=== PATIENT | female | born 1950 | race Caucasian/White ===

== ENCOUNTER 2019-05-30 11:19 | Emergency (ER) | payer OTHER, SELFPAY ==
[2019-05-30 11:48] VITALS: BP 133/69; PULSE 82; RESP 16; TEMP 36.8; O2SAT 99
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
== END 2019-05-30 12:44 | disposition home or self-care (01) ==
PROVIDERS: Emergency Provider Nurse Practitioner; PCP Family Medicine
DX: L08.9 Local infection of the skin and subcutaneous tissue, unspecified (principal); S51.801A Unspecified open wound of right forearm, initial encounter; X19.XXXA Contact with other heat and hot substances, initial encounter; E78.00 Pure hypercholesterolemia, unspecified; I10 Essential (primary) hypertension; J45.909 Unspecified asthma, uncomplicated; Z96.653 Presence of artificial knee joint, bilateral; E03.9 Hypothyroidism, unspecified
CPT/HCPCS: 99213; G0463

== ENCOUNTER 2020-09-29 12:15 | Emergency (ER) | payer OTHER, SELFPAY ==
--- NOTE | ~2020-09-29 | XR_ITS ---
EXAMINATION: XR elbow RT min 3V EXAM DATE: 09/29/2020 12:45 INDICATION: Injury one month ago. Still having pain/weakness. TECHNIQUE: Right elbow frontal, lateral with flexion, and oblique projections obtained and reviewed. There is no prior study for comparison. FINDINGS: Right elbow anterior humeral line intact. No periosteal reaction or sclerosis is identifi ed to suggest healing subacute fracture. There are no acute fractures or dislocations identified. Th ere is no subcutaneous gas. The soft tissue is unremarkable. There are no radiopaque foreign barron s. IMPRESSION: 1. Unremarkable right elbow exam. Reviewed, dictated and finalized at location B.
[2020-09-29 12:26] VITALS: BP 108/83; PULSE 85; RESP 16; TEMP 36.8; O2SAT 99
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
== END 2020-09-29 13:07 | disposition home or self-care (01) ==
PROVIDERS: Emergency Provider Nurse Practitioner Family; PCP Nurse Practitioner Family
DX: M25.521 Pain in right elbow (principal); J45.909 Unspecified asthma, uncomplicated; I25.10 Atherosclerotic heart disease of native coronary artery without angina pectoris; Z86.16 Personal history of COVID-19; I10 Essential (primary) hypertension; M79.7 Fibromyalgia; E78.5 Hyperlipidemia, unspecified; E03.9 Hypothyroidism, unspecified; M19.90 Unspecified osteoarthritis, unspecified site; E11.9 Type 2 diabetes mellitus without complications; Z96.659 Presence of unspecified artificial knee joint; Z96.611 Presence of right artificial shoulder joint; Z79.82 Long term (current) use of aspirin; F41.9 Anxiety disorder, unspecified
CPT/HCPCS: 73080; 99213; G0463

== ENCOUNTER 2020-10-24 13:36 | Outpatient (CLI) | payer OTHER, SELFPAY ==
--- NOTE | ~2020-10-24 | MM_ITS ---
EXAMINATION: MM screening jorge BI w christo HISTORY: Screening mammogram TECHNIQUE: Craniocaudal and mediolateral oblique 3-D tomosynthesis images were obtained and synthetic 2-D images were generated. CAD analysis was submitted and interpreted. COMPARISON: No prior mammogram is available for comparison at this institution. BREAST PARENCHYMAL COMPOSITION: The breasts are heterogeneously dense, which may obscure small masses . FINDINGS: RIGHT BREAST: There is focal asymmetry in the middle third of the upper outer quadrant breast. LEFT BREAST: There is no evidence of suspicious mass, calcification, or architectural distortion to s uggest malignancy. IMPRESSION: 1. Right breast focal asymmetry which may represent the patient's baseline however no comparison is c urrently available. 2. Comparison with prior mammograms is necessary. BI-RADS Category 0: Incomplete: Needs comparison with prior mammograms. Reviewed, dictated and finalized at location A. IMPRESSION: 1. Right breast focal asymmetry which may represent the patient's baseline hopkins partha no comparison is currently available. 2. Comparison with prior mammograms is necessary. BI-RADS Category 0: Incomplete: Needs comparison with prior mammograms.
--- NOTE | ~2020-10-24 | DEXA_ITS ---
Bone Density Report Name: Nancy Barbosa Age: 70 Sex: Female Ethnicity: White Date of : 1950 Indication: postmenopausal; height loss; inflammatory bowel disease; prior fracture; asthma or emphysema; hysterectomy; Referring Provider: April Tipton Study: Bone densitometry was performed. Exam Date: October 24, 2020 Accession number: [id number] Bone Density: Region BMD T-score Z-score Classification AP Spine (L1-L4) 0.925 -1.1 1.1 Osteopenia Femoral Neck (Left) 0.808 -0.4 1.5 Normal Total Hip (Left) 0.960 0.1 1.7 Normal Total Hip Bilateral Avg 0.942 -0.1 1.6 Normal Femoral Neck (Right) 0.742 -1.0 0.9 Normal Total Hip (Right) 0.923 -0.2 1.4 Normal World Health Organization criteria for BMD impression classify patients as: Normal (T-score at or above -1.0), Osteopenia (T-score between -1.0 and -2.5), or Osteoporosis (T-score at or below -2.5). 10-year Fracture Risk(1): Major Osteoporotic Fracture 14% Hip Fracture 1.4% Reported Risk Factors: [place] (), Neck BMD=0.742, BMI=32.6, previous fracture (1) FRAX(R) Version 3.08. Fracture probability calculated for an untreated patient. Fracture probability may be lower if the patient has received treatment. Clinical Information Provided by Patient: Has had a low trauma fracture Has the following medical conditions: Asthma or Emphysema, Inflammatory bowel diseases, Hysterectomy Patient maximum height was 66 Menopause Age: 31 No regular weight bearing exercise Drinks caffeinated beverages Onset of menses at age 11 Number of children 2 Impression: The patient has low bone mass, based on the Total Spine T-score. The patient has an estimated ten-year risk of hip fracture of 1.4% and an estimated ten-year risk of major fracture of 14%, based on the WHO FRAX algorithm. The patient has risk factors, including: previous fracture. Discussion: BONE DENSITY IS LOW AT ONE OR MORE SKELETAL SITES. This patient's lowest T-score is low at one or more skeletal sites. It meets the World Health Organization's (WHO) criteria for ?low bone mass? (T-score between -1.0 and -2.5). The patient's 10-year risk of fracture as calculated by FRAX is less than the threshold where pharmacological therapy is recommended by the National Osteoporosis Foundation (NOF). However, all treatment decisions require clinical judgment and consideration of individual patient factors, including patient preferences, comorbidities, previous drug use, risk factors not captured in the FRAX model (e.g., frailty, falls, vitamin D deficiency, increased bone turnover, interval significant decline in bone density) and possible under or overestimation of fracture risk by FRAX. The patient should follow a healthful lifestyle (good nutrition with adequate calcium and vitamin D, and appropriate weight-rancho
== END 2020-10-24 13:37 | disposition home or self-care (01) ==
LOC: ANHIMG 13:39
PROVIDERS: PCP Nurse Practitioner Family; Visit Provider Nurse Practitioner Family
DX: Z12.31 Encounter for screening mammogram for malignant neoplasm of breast (principal); Z78.0 Asymptomatic menopausal state; R92.8 Other abnormal and inconclusive findings on diagnostic imaging of breast; M85.88 Other specified disorders of bone density and structure, other site
CPT/HCPCS: 77063; 77067; 77080

== ENCOUNTER 2021-01-27 23:25 | Emergency (ER) | payer OTHER, SELFPAY ==
--- NOTE | ~2021-01-27 | CT_ITS ---
EXAMINATION: CT BRAIN W/O DATE: 01/28/2021 02:28 INDICATION: Head injury. TECHNIQUE: Computed tomography (CT) of the head was performed without intravenous contrast. The dose- length product was 605.33 mGy-cm. Automated exposure control and iterative reconstruction technique w ere employed. COMPARISON: No prior studies for comparison. FINDINGS: Normal brain parenchymal volume for age. Normal urias-white differentiation. No acute intrac ranial hemorrhage, infarction, mass or mass effect. There are scattered mild periventricular and subc ortical white matter changes, most likely related to small vessel ischemic disease (microangiopathy). No ventriculomegaly or midline shift. Midline sagittal images demonstrate a normal corpus callosum, c raniovertebral junction and sella turcica. Basilar cisterns are patent. Paranasal sinuses and mastoids are pneumatized. No depressed skull fractures. IMPRESSION: 1. No acute intracranial abnormality. Reviewed, dictated and finalized at location A.
[2021-01-27 23:27] VITALS: BP 146/113; PULSE 88; RESP 20; TEMP 36.7; O2SAT 100
[2021-01-28 01:53] VITALS: BP 121/60; PULSE 84; RESP 16; O2SAT 100
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
[2021-01-28 04:53] VITALS: BP 132/68; PULSE 92; RESP 18; O2SAT 95
== END 2021-01-28 05:15 | disposition home or self-care (01) ==
PROVIDERS: Emergency Provider General Practice; PCP Nurse Practitioner Family
DX: S01.112A Laceration without foreign body of left eyelid and periocular area, initial encounter (principal); I25.10 Atherosclerotic heart disease of native coronary artery without angina pectoris; J45.909 Unspecified asthma, uncomplicated; Z86.16 Personal history of COVID-19; I10 Essential (primary) hypertension; E78.5 Hyperlipidemia, unspecified; M79.7 Fibromyalgia; N32.81 Overactive bladder; M19.90 Unspecified osteoarthritis, unspecified site; M85.80 Other specified disorders of bone density and structure, unspecified site; E11.9 Type 2 diabetes mellitus without complications; Z79.82 Long term (current) use of aspirin; Z79.4 Long term (current) use of insulin; Z96.611 Presence of right artificial shoulder joint; Z96.659 Presence of unspecified artificial knee joint; W10.9XXA Fall (on) (from) unspecified stairs and steps, initial encounter
CPT/HCPCS: 12013; 70450; 99284

== ENCOUNTER 2021-11-19 10:37 | Outpatient (CLI) | payer OTHER, SELFPAY ==
[2021-11-19 19:26] LABS: Alanine Aminotransferase 20 U/L (6-35); Albumin Level 4.1 g/dL (3.5-5.1); Alkaline Phosphatase 77 U/L (38-126); Anion Gap 7 mmol/L (8-16); Aspartate Amino Transferase 39 U/L (14-36); Bilirubin,Total 0.6 mg/dL (0.2-1.3); Blood Urea Nitrogen 14 mg/dL (7-17); Calcium 9.1 mg/dL (8.4-10.2); Carbon Dioxide 32 mmol/L (22-30); Chloride 98 mmol/L (98-107); Cholesterol 133 mg/dL (0-200); Estimated Glomerular Filt Rate > 60; Glucose 180 mg/dL (65-110); HDL Direct 38 mg/dL; Potassium 4.8 mmol/L (3.4-5.0); Sodium 137 mmol/L (137-145); Triglycerides 87 mg/dL (<150)
[2021-11-19 19:37] LABS: LDL Cholesterol Direct 60 mg/dL
[2021-11-19 19:40] LABS: Iron 87 ug/dL (37-170)
[2021-11-19 19:55] LABS: Percent Iron Saturation 23 % (20-50)
[2021-11-19 19:56] LABS: Microalbumin Urine Random 9.5 mg/L (0-16.7)
[2021-11-19 19:59] LABS: Creatinine Urine 105.9 mg/dL
[2021-11-19 20:00] LABS: Hemoglobin A1C 7.9 % (<5.7)
[2021-11-19 20:26] LABS: Hematocrit 37.9 % (37.0-47.0); Mean Corpuscular HGB Conc 31.7 g/dl (32-36); Mean Corpuscular Hemoglobin 28.7 pg (26-34); Mean Corpuscular Volume 90.7 fl (80-100); Platelet Count Result 244 k/mm3 (150-375); Red Blood Count 4.18 M/mm3 (4.2-5.4); Red Cell Distribution Width 13.5 % (11.5-14.5); White Blood Count 6.8 K/mm3 (4.5-10.0)
== END 2021-11-19 10:38 | disposition home or self-care (01) ==
PROVIDERS: PCP Family Medicine; Visit Provider Nurse Practitioner Family
DX: E03.9 Hypothyroidism, unspecified (principal); I10 Essential (primary) hypertension; E11.9 Type 2 diabetes mellitus without complications; E78.5 Hyperlipidemia, unspecified; D64.9 Anemia, unspecified
CPT/HCPCS: 36415; 80053; 80061; 82043; 82728; 83036; 83540; 83550; 84443; 85027

== ENCOUNTER 2022-01-30 15:20 | Outpatient (CLI) | payer OTHER, SELFPAY ==
--- NOTE | ~2022-01-30 | MM_ITS ---
EXAMINATION: MM screening jorge BI w christo HISTORY: Screening TECHNIQUE: Craniocaudal and mediolateral oblique 3-D tomosynthesis images were obtained and synthetic 2-D images were generated. CAD analysis was submitted and interpreted. COMPARISON: Comparison to multiple prior studies sequentially, with oldest reviewed study dated 08/02. BREAST PARENCHYMAL COMPOSITION: Breast composed of scattered areas of fibroglandular density FINDINGS: There is no evidence of suspicious mass, calcification, or architectural distortion to sugg est malignancy in either breast. There has been no suspicious interval change. IMPRESSION: 1. No mammographic evidence of malignancy. 2. Recommend routine screening mammography in one year. BI-RADS Category 1: Negative Reviewed, dictated and finalized at location A.
== END 2022-01-30 15:21 | disposition home or self-care (01) ==
PROVIDERS: PCP Family Medicine; Visit Provider Nurse Practitioner Family
DX: Z12.31 Encounter for screening mammogram for malignant neoplasm of breast (principal)
CPT/HCPCS: 77063; 77067

== ENCOUNTER 2022-06-20 10:11 | Outpatient (CLI) | payer OTHER, SELFPAY ==
[2022-06-20 20:10] LABS: Vitamin D 25 Hydroxy 55.9 ng/mL
[2022-06-20 20:23] LABS: Basophils Absolute Auto 0.1 K/mm3 (0.0-0.1); Basophils Percent Auto 0.7 % (0.2-1.2); Eosinophils Absolute Auto 0.2 K/mm3 (0-0.3); Eosinophils Percent Auto 2.9 % (0-4.4); Hematocrit 38.3 % (37.0-47.0); Hemoglobin 11.8 g/dL (12.0-15.0); Immature Granulocyte Absolute 0.03 K/mm3 (0.00-0.031); Immature Granulocyte Percent A 0.4 % (0-0.5); Lymphocytes Absolute Auto 2.03 K/mm3 (0.9-3.2); Lymphocytes Percent Auto 29.2 % (18.3-44.2); Mean Corpuscular HGB Conc 30.8 g/dl (32-36); Mean Corpuscular Hemoglobin 27.8 pg (26-34); Mean Corpuscular Volume 90.3 fl (80-100); Mean Platelet Volume 11.7 fl (7.4-10.4); Monocytes Absolute Auto 1.2 K/mm3 (0.1-0.6); Monocytes Percent Auto 17.1 % (2.6-8.5); Neutrophils Absolute Auto 3.5 K/mm3 (1.3-6.7); Neutrophils Percent Auto 49.7 % (45.5-73.1); Platelet Count Result 239 k/mm3 (150-375); Red Blood Count 4.24 M/mm3 (4.2-5.4); Red Cell Distribution Width 13.2 % (11.5-14.5)
[2022-06-20 20:34] LABS: Alanine Aminotransferase 21 U/L (6-35); Alkaline Phosphatase 87 U/L (38-126); Anion Gap 5 mmol/L (8-16); Aspartate Amino Transferase 41 U/L (14-36); Bilirubin,Total 0.5 mg/dL (0.2-1.3); Blood Urea Nitrogen 20 mg/dL (7-17); Calcium 9.3 mg/dL (8.4-10.2); Carbon Dioxide 31 mmol/L (22-30); Chloride 103 mmol/L (98-107); Cholesterol 131 mg/dL (0-200); Estimated Glomerular Filt Rate > 60; Glucose 159 mg/dL (65-110); HDL Direct 38 mg/dL; Potassium 4.9 mmol/L (3.4-5.0); Sodium 139 mmol/L (137-145); Triglycerides 95 mg/dL (<150)
[2022-06-20 20:46] LABS: LDL Cholesterol Direct 67 mg/dL
[2022-06-21 10:47] LABS: Hemoglobin A1C 8.4 % (<5.7)
== END 2022-06-20 10:12 | disposition home or self-care (01) ==
LOC: ANHGOSHLAB 10:13
PROVIDERS: PCP Family Medicine; Visit Provider Nurse Practitioner Family
DX: E11.9 Type 2 diabetes mellitus without complications (principal); I10 Essential (primary) hypertension; E78.5 Hyperlipidemia, unspecified; E03.9 Hypothyroidism, unspecified; E55.9 Vitamin D deficiency, unspecified
CPT/HCPCS: 36415; 80053; 80061; 82306; 83036; 84443; 85025

== ENCOUNTER → 2022-06-28 14:34 | Outpatient (CLI) | payer OTHER, SELFPAY ==
--- NOTE | ~2022-06-28 | XR_ITS ---
XR lumbar spine 2-3V 06/28/2022 14:54 Indication: Low back pain. Hip pain. Procedure: 3 views lumbar spine Comparison: No prior studies for comparison. Findings: Vertebral body heights are maintained. There is lower lumbar facet hypertrophy at L5-S1. No acute fracture, subluxation or dislocation. Pedicles intact. Sacral foramen are symmetric. There is disc narrowing at L5-S1. There is mild atherosclerosis. Impression: 1: Mild lumbar spondylosis. Reviewed, dictated and finalized at location A. Impression: 1: Mild lumbar spondylosis.
== END ==
PROVIDERS: PCP Family Medicine; Visit Provider Family Medicine
DX: M47.896 Other spondylosis, lumbar region (principal)
CPT/HCPCS: 72100

== ENCOUNTER 2023-02-10 11:12 | Outpatient (CLI) | payer OTHER, SELFPAY ==
[2023-02-10 13:09] LABS: Basophils Percent Auto 0.4 % (0.2-1.2); Eosinophils Absolute Auto 0.3 K/mm3 (0-0.3); Eosinophils Percent Auto 2.4 % (0-4.4); Hematocrit 41.8 % (37.0-47.0); Hemoglobin 12.9 g/dL (12.0-15.0); Immature Granulocyte Absolute 0.05 K/mm3 (0.00-0.031); Immature Granulocyte Percent A 0.5 % (0-0.5); Lymphocytes Absolute Auto 2.12 K/mm3 (0.9-3.2); Lymphocytes Percent Auto 19.7 % (18.3-44.2); Mean Corpuscular HGB Conc 30.9 g/dl (32-36); Mean Corpuscular Hemoglobin 28.4 pg (26-34); Mean Corpuscular Volume 91.9 fl (80-100); Mean Platelet Volume 11.6 fl (7.4-10.4); Monocytes Absolute Auto 1.1 K/mm3 (0.1-0.6); Monocytes Percent Auto 9.9 % (2.6-8.5); Neutrophils Absolute Auto 7.2 K/mm3 (1.3-6.7); Neutrophils Percent Auto 67.1 % (45.5-73.1); Platelet Count Result 235 k/mm3 (150-375); Red Blood Count 4.55 M/mm3 (4.2-5.4); Red Cell Distribution Width 13.4 % (11.5-14.5); White Blood Count 10.8 K/mm3 (4.5-10.0)
[2023-02-10 13:16] LABS: Alanine Aminotransferase 20 U/L (6-35); Albumin Level 4.1 g/dL (3.5-5.1); Alkaline Phosphatase 83 U/L (38-126); Anion Gap 7 mmol/L (8-16); Aspartate Amino Transferase 45 U/L (14-36); Bilirubin,Total 0.7 mg/dL (0.2-1.3); Blood Urea Nitrogen 15 mg/dL (7-17); Calcium 9.7 mg/dL (8.4-10.2); Carbon Dioxide 29 mmol/L (22-30); Chloride 98 mmol/L (98-107); Cholesterol 135 mg/dL (0-200); Estimated Glomerular Filt Rate > 60; Glucose 176 mg/dL (65-110); HDL Direct 41 mg/dL; Potassium 3.9 mmol/L (3.4-5.0); Sodium 134 mmol/L (137-145); Triglycerides 103 mg/dL (<150)
[2023-02-10 13:27] LABS: LDL Cholesterol Direct 60 mg/dL
[2023-02-10 13:33] LABS: Hemoglobin A1C 7.7 % (<5.7)
[2023-02-10 14:27] LABS: Microalbumin Urine Random 82.8 mg/L (0-16.7)
[2023-02-10 15:27] LABS: Creatinine Urine 673.2 mg/dL; MALB Creatinine Ratio 12.3 mg/g (0-30)
[2023-02-13 11:55] LABS: Vitamin D 1,25 (OH)2 Total 27 pg/mL (18-72); Vitamin D2 1,25 (OH)2 <8 pg/mL; Vitamin D3 1,25 (OH)2 27 pg/mL
== END 2023-02-10 11:13 | disposition home or self-care (01) ==
LOC: ANHGOSHLAB 11:13
PROVIDERS: PCP Family Medicine; Visit Provider Nurse Practitioner Family
DX: E55.9 Vitamin D deficiency, unspecified (principal); I10 Essential (primary) hypertension; E11.9 Type 2 diabetes mellitus without complications; E03.9 Hypothyroidism, unspecified
CPT/HCPCS: 36415; 80053; 80061; 82043; 82652; 83036; 84443; 85025

== ENCOUNTER 2023-11-12 12:42 | Outpatient (CLI) | payer OTHER, SELFPAY ==
[2023-11-12 19:58] LABS: Hematocrit 40.5 % (37.0-47.0); Hemoglobin 13.4 g/dL (12.0-15.0); Mean Corpuscular HGB Conc 33.1 g/dl (32-36); Mean Corpuscular Hemoglobin 29.3 pg (26-34); Mean Corpuscular Volume 88.6 fl (80-100); Platelet Count Result 235 k/mm3 (150-375); Red Blood Count 4.57 M/mm3 (4.2-5.4); Red Cell Distribution Width 13.8 % (11.5-14.5)
[2023-11-12 21:13] LABS: Free T4 Free Thyroxine 1.87 ng/mL (0.78-2.19); Vitamin D 25 Hydroxy 51.5 ng/mL
[2023-11-12 21:23] LABS: Alanine Aminotransferase 17 U/L (6-35); Albumin Level 4.5 g/dL (3.5-5.1); Alkaline Phosphatase 88 U/L (38-126); Anion Gap 13 mmol/L (4-12); Aspartate Amino Transferase 32 U/L (14-36); Bilirubin,Total 1.1 mg/dL (0.2-1.3); Blood Urea Nitrogen 20 mg/dL (7-17); Calcium 9.7 mg/dL (8.4-10.2); Carbon Dioxide 26 mmol/L (22-30); Chloride 95 mmol/L (98-107); Cholesterol 144 mg/dL (0-200); Estimated Glomerular Filt Rate > 60; Glucose 206 mg/dL (65-110); HDL Direct 42 mg/dL; Potassium 4.7 mmol/L (3.4-5.0); Sodium 134 mmol/L (137-145); Triglycerides 97 mg/dL (<150)
[2023-11-12 21:32] LABS: Hemoglobin A1C 7.9 % (<5.7)
[2023-11-12 21:33] LABS: LDL Cholesterol Direct 72 mg/dL; Thyroid Stimulating Hormone 0.811 uIU/mL (0.465-4.680)
== END 2023-11-12 12:43 | disposition home or self-care (01) ==
LOC: ANHGOSHLAB 12:44
PROVIDERS: PCP Family Medicine; Visit Provider Nurse Practitioner
DX: Z00.00 Encounter for general adult medical examination without abnormal findings (principal); E11.9 Type 2 diabetes mellitus without complications; E03.9 Hypothyroidism, unspecified; E55.9 Vitamin D deficiency, unspecified
CPT/HCPCS: 36415; 80053; 80061; 82306; 83036; 84439; 84443; 85027

== ENCOUNTER 2023-12-12 13:44 | Outpatient (CLI) | payer OTHER, SELFPAY ==
--- NOTE | ~2023-12-12 | DEXA_ITS ---
Bone Density Report Name: YUNG MAE Age: 73 Sex: Female Ethnicity: White Date of : 1950 Indication: hyperparathyroidism; height loss; inflammatory bowel disease; asthma or emphysema; hysterectomy; Referring Provider: Moni Renner Study: Bone densitometry was performed. Exam Date: December 12, 2023 Accession number: [id number] Bone Density: Region BMD T-score Z-score Classification AP Spine(L1-L4) 0.941 -1.0 1.4 Normal Femoral Neck (Left) 0.785 -0.6 1.5 Normal Total Hip (Left) 0.948 0.0 1.8 Normal Femoral Neck (Right) 0.725 -1.1 0.9 Osteopenia Total Hip (Right) 0.878 -0.5 1.2 Normal Femoral Neck Mean 0.755 -0.8 1.2 Normal Total Hip Mean 0.913 -0.2 1.5 Normal World Health Organization criteria for BMD impression classify patients as: Normal (T-score at or above -1.0), Osteopenia (T-score between -1.0 and -2.5), or Osteoporosis (T-score at or below -2.5). 10-year Fracture Risk(1): Major Osteoporotic Fracture 9.7% Hip Fracture 1.5% Reported Risk Factors: [place] (), Neck BMD=0.725, BMI=28.7 (1) FRAX(R) Version 3.08. Fracture probability calculated for an untreated patient. Fracture probability may be lower if the patient has received treatment. Clinical Information Provided by Patient: Has used the following medications: Vitamin D, Calcium Has the following medical conditions: Asthma or Emphysema, Inflammatory bowel diseases, Hyperparathyroidism, Hysterectomy Patient maximum height was 66.5 Menopause Age: 31 No regular weight bearing exercise Does not regularly consume dairy products Drinks caffeinated beverages Onset of menses at age 12 Number of children 2 Impression: The patient has low bone mass, based on the Right Femoral Neck T-score. Discussion: BONE DENSITY IS LOW AT ONE OR MORE SKELETAL SITES. This patient's lowest T-score is low at one or more skeletal sites. It meets the World Health Organization's (WHO) criteria for ?low bone mass? (T-score between -1.0 and -2.5). The patient's 10-year risk of fracture as calculated by FRAX is less than the threshold where pharmacological therapy is recommended by the National Osteoporosis Foundation (NOF). However, all treatment decisions require clinical judgment and consideration of individual patient factors, including patient preferences, comorbidities, previous drug use, risk factors not captured in the FRAX model (e.g., frailty, falls, vitamin D deficiency, increased bone turnover, interval significant decline in bone density) and possible under or overestimation of fracture risk by FRAX. The patient should follow a healthful lifestyle (good nutrition with adequate calcium and vitamin D, and appropriate weight-bearing exercise). Follow-Up: Consider repeating this study in 2 to 3 y
--- NOTE | ~2023-12-12 | MM_ITS ---
EXAMINATION: MM screening jorge BI w christo HISTORY: Screening TECHNIQUE: Craniocaudal and mediolateral oblique 3-D tomosynthesis images were obtained and synthetic 2-D images were generated. CAD analysis was submitted and interpreted. COMPARISON: Comparison to multiple prior studies sequentially, with oldest reviewed study dated Remberto rison to multiple prior studies sequentially, with oldest reviewed study dated 08/03/2015. . BREAST PARENCHYMAL COMPOSITION: Dense: The breasts are heterogeneously dense, which may obscure small masses FINDINGS: There is no evidence of suspicious mass, calcification, or architectural distortion to sugg est malignancy in either breast. There has been no suspicious interval change. IMPRESSION: 1. No mammographic evidence of malignancy. 2. Recommend routine screening mammography in one year. BI-RADS Category 1: Negative Reviewed, dictated and finalized at location B.
== END 2023-12-12 13:45 | disposition home or self-care (01) ==
LOC: CHSIMG 13:52
PROVIDERS: Visit Provider Nurse Practitioner
DX: Z12.31 Encounter for screening mammogram for malignant neoplasm of breast (principal); Z78.0 Asymptomatic menopausal state; M85.88 Other specified disorders of bone density and structure, other site
CPT/HCPCS: 77063; 77067; 77080

== ENCOUNTER 2024-12-24 10:48 | Outpatient (CLI) | payer OTHER, SELFPAY ==
--- OUTSIDE RECORDS SUMMARY | 2024-12-24 11:35 | XMS_ITS | Encounter Summary ---
Author Organization [facility] Healthcare Address [address] [place] [id number] Care Team Providers Care Sorting And Folding Supervisor Name Role Phone Jessica Hanna MD Unavailable Connor Gayle MD Unavailable Rosanne Olson MD Primary Care Provider Encounter Details Date Type Department Care Team (Late st Contact Info) Description 12/22/[address] [facility] Diabetes and Endocrinology [address] [place] [id number] Provider, MD Alexia [address] [place], [place] [id number] Social History Tobacco Use Types Packs/Day Years Used Date Smoking Tobacco: Never Smokeless Tobacco: Never Alcohol Use Standard Drinks/Week Comments No 0 (1 standard drink = 0.6 oz pur e alcohol) PHQ-2 Answer Date Recorded PHQ-2 Total Score (If total score is 3 or more points, staff should administer the PHQ-9) 0 12/25/2021 Personal Safety Answer Date Recorded Have you ever been in or are you currently in a harmful physical or emotional relationship or is someone making you feel afraid or unsafe? Denies 12/31/2023 Comments No Sex and Gender Information Value Date Recorded Sex Assigned at Not on file Legal Sex Female 3:35 AM PROCEDURES RN Gender Identity Not on file Sexual Orientation Not on file documented as of this encounter Plan of Treatment Not on file documented as of this encounter Procedures Procedure Name Priority Date/Time Associated Diagnosis Comments DIABETES EYE EXAM Routine 09/09/2024 8:09 AM CDT documented in this encounter Results * DIABETES EYE EXAM (09/09/2024 8:09 AM CDT) us Historical Provider HEALTH MAINTENANCE Final Result documented in this encounter Visit Diagnoses Not on filedocumented in this encounter Care Teams Sorting And Folding Supervisor Relationship Specialty [place] [id number] [place] [address] PCP - General Family Practice 10/10/22 [place] [address] [address] [place] [address] Consulting Physician Endocrinology Diabetes & Metabolism 05/12/18 [place] [id number] [address] [facility] [address] [place] [address] Consulting Physician Cardiology 11/30/19 documented as of this encounter
--- OUTSIDE RECORDS SUMMARY | 2024-12-24 11:35 | XMS_ITS | Clinical Summary ---
Author Organization [facility] Address [address] [place] [address] Care Team Providers Care Proctologist Name Role Phone Jessica Hanna MD Unavailable Connor Gayle MD Unavailable Rosanne Olson MD Primary Care Provider Allergies Active Allergy Reactions Criticality Noted Date Comments Adhesive Unknown Adhesive Tape-Silicones Other (See comments) Reaction: UNKNOWN, Clarithromycin Nausea only Reaction: Nausea, Latex Medications carvedilol (COREG) 6.25 mg tablet take 1 tablet by oral route every day with food 0 0 017 Active Additional Information Patient taking differently:6.25 mg2 times daily with meals (bkfst, dinner), Reported on 12/09/2024 sennosides (SENNA) 8.6 mg capsule take 1 capsule by oral route 2 times every day PRN 0 0 017 Active furosemide (LASIX) 20 mg tablet take 1 tablet by oral route every day 0 0 017 Active Additional Information Patient taking differently:20 mgoral Daily, Reported on 12/09/2024 atorvastatin (LIPITOR) 40 mg tablet Take 1 tablet (40 mg total) by mouth daily 3 017 Active aspirin 81 mg tablet Take 2 tablets (162 mg total) by mouth daily Active cholecalciferol (VITAMIN D-3) 5,000 unit capsule Take 1 capsule (5,000 Units total) by mouth daily Active buPROPion (WELLBUTRIN) 75 mg tablet Take 1 tablet (75 mg total) by mouth 2 (two) times a day 60 tablet [address] (CYMBALTA) 30 mg capsule Take by mouth daily Active nystatin-triamcin olone cream Apply topically 2 (two) times a day Active oxybutynin XL (DITROPAN-XL) 10 mg 24 hr tablet Take 1 tablet (10 mg total) by mouth daily Active Senna Laxative 8.6 mg tablet TAKE 1 TABLET BY MOUTH TWICE A DAY NEEDED FOR CONSTIPATION Active celecoxib (CeleBREX) 200 mg capsule Take by mouth daily Active cyclobenzaprine (FLEXERIL) 10 mg tablet TAKE 0.5-1 ORAL TABLET 2 TIMES A DAY Active ibuprofen (ADVIL,MOTRIN) 800 mg tablet TAKE 1 TABLET BY MOUTH EVERY 6 TO 8 HOURS NEEDED Active ROPivacaine (NAROPIN) 5 mg/mL (0.5 %) injection Take 40 mg by injection route. Active traZODone (DESYREL) 50 mg tablet Take 1 tablet (50 mg total) by mouth daily as needed Active triamcinolone (Kenalog) 10 mg/mL injection Take 40 mg by injection route. Active FreeStyle Suzette 3 Seltzer miscIndications:T ype 2 diabetes mellitus with hyperglycemia, with long-term current use of insulin ([facility]) Continuous glucose monitor 1 each Active TiZANidine (ZANAFLEX) 2 mg capsuleIndication s:Other closed displaced fracture of proximal end of left humerus, sequela TAKE 1 CAPSULE BY MOUTH 3 TIMES A DAY NEEDED FOR MUSCLE SPASMS. 30 capsule Active levothyroxine (SYNTHROID) 100 mcg tabletIndications :Acquired hypothyroidism TAKE 1 TABLET BY MOUTH EVERY DAY 30 tablet 11 Active Additional Information Patient taking differently:100 mcg oral Daily,Every day except Friday, Reported on 12/09/2024 HumaLOG 100 unit/mL pen for injectionIndicati ons:type 2 diabetes mellitus Inject 4-12 Units under the skin 3 (three) times a day before meals 30 mL 3 024 2024 Active Xeljanz XR 11 mg 025 Active semaglutide (OZEMPIC) 2 mg/dose (8 mg/3 mL) pen injector injectionIndicati ons:type 2 diabetes mellitus Inject 2 mg under the skin once a week 9 mL 3 025 2025 Active insulin glargine 100 unit/mL (3 mL) pen for injection INJECT 16 UNITS UNDER THE SKIN TWICE DAILY Active blood-glucose sensor (FreeStyle Suzette 3 Plus Sensor) deviceIndications :Type 2 diabetes mellitus with hyperglycemia, with long-term current use of insulin ([facility]) Change sensor every 15 days. 6 each 3 Active pen needle, diabetic (Pen Needle) 31 gauge x 5/16 needleIndications :Type 2 diabetes mellitus with hyperglycemia, with long-term current use of insulin ([facility]) Use to inject insulin 4 times daily 400 each 3 Active pen needle, diabetic 31 gauge x 3/16 needleIndications :Type 2 diabetes mellitus with hyperglycemia, with long-term current use of insulin ([facility]) Inject insulin four times daily 400 each 3 024 2024 Discontinued blood-glucose sensor (FreeStyle Suzette 3 Sensor) deviceIndications :Type 2 diabetes mellitus with hyperglycemia, with long-term current use of insulin ([facility]) Continuous glucose monitor. Please change every 14 days. 6 each 3 025 2024 Discontinued insulin glargine (LANTUS) 100 unit/mL (3 mL) pen for injection Inject 16 Units under the skin 2 (two) times a day 30 mL 3 025 2024 Discontinued(A lternate therapy) Active Problems Problem Noted Date Diagnosed Date Foul smelling urine 08/04/2024 Assessment & Plan (08/04/2024 2:05 PM CDT): New problem. Poor water intake. Stressed need to cut back on soda & increase water intake (minimum 60oz/day). Will check UA/cx. Does not mychart. Verified phone #/address to contact re: results. Class 2 severe obesity due t o excess calories with serious comorbidity and body mass index (BMI) of 36.0 to 36.9 in adult 07/04/2022 Assessment & Plan (07/04/2022 4:11 PM CDT): Discussed healthy diet and importance of regular physical activity (20- 30min/day, 150min/wk). Limited d/t chronic pain Acquired hypothyroidism 12/25/2021 Overview (12/25/2021): Recheck TFT's Adjust dose of LT4 as indicated Assessment & Plan (12/09/2024 1:51 PM CDT): Chronic problem, clinically & biochemically euthyroid on current Levothyroxine 100 mcg 6 days/wk. Aware to take 1st thing in morning, 30-60 minutes before food/drink/other medications. TFTs in range 04/21/24 Assessment & Plan (08/04/2024 1:19 PM CDT): Chronic problem, currently taking Levothyroxine 100 mcg 6 days/wk. Aware to take 1st thing in morning, 30-60 minutes before food/drink/other medications. Assessment & Plan (04/21/2024 1:10 PM CEMENT PAVER): Chronic problem, currently taking Levothyroxine 100 mcg 6 days/wk. Aware to take 1st thing in morning, 30-60 minutes before food/drink/other medications. Will update labs today. Does not mychart. Verified phone #/address to contact re: results. Assessment & Plan (12/25/2023 1:34 PM CDT): Chronic problem, currently taking Levothyroxine 100 mcg 6 days/wk after 08/14/23 lab results. Will update labs today. Does not mychart. Verified phone #/address to contact re: results. Aware to take 1st thing in morning, 30-60 minutes before food/drink/other medications. Assessment & Plan (08/14/2023 2:40 PM CDT): Chronic problem, currently taking Levothyroxine 100mcg daily. Will repeat TFTs today. Will update labs today. Does not mychart. Verified phone #/address to contact re: results. Aware to take 1st thing in morning, 30-60 minutes before food/drink/other medications. Assessment & Plan (05/07/2023 3:57 PM CEMENT PAVER): Chronic problem, currently taking Levothyroxine 100mcg Friday through Friday; none on Friday. Will repeat TFTs today. Will update labs today. Does not mychart. Verified phone #/address to contact re: results. Aware to take 1st thing in morning, 30-60 minutes before food/drink/other medications. Assessment & Plan (10/10/2022 2:48 PM CDT): Chronic problem, currently taking Levothyroxine 100mcg. Had labs drawn at PCP 06/20/22: TSH=1.620 No changes at this time. Assessment & Plan (07/04/2022 4:12 PM CDT): Chronic problem, currently taking Levothyroxine 100mcg. Had labs drawn at PCP 06/20/22: TSH=1.620 No changes at this time. Hyperlipidemia associated with type 2 diabetes dada clifton 08/05/2017 Assessment & Plan (12/09/2024 1:51 PM CDT): Chronic problem, controlled on current Atorvastatin 40mg. Last lipid panel: 08/04/24 LDL=68, TG=78. Assessment & Plan (08/04/2024 1:19 PM CDT): Chronic problem, controlled on current Atorvastatin 40mg. Last lipid panel: 11/12/23 LDL=72, TG=97. Assessment & Plan (04/21/2024 1:10 PM CEMENT PAVER): Chronic problem, controlled on current Atorvastatin 40mg. Last lipid panel: 11/12/23 LDL=72, TG=97. Assessment & Plan (12/25/2023 1:32 PM CDT): Chronic problem, controlled on current Atorvastatin 40mg. Last lipid panel: 08/14/23 LDL=60, AH=883. Assessment & Plan (08/14/2023 2:00 PM CDT): Chronic problem, controlled on current Atorvastatin 40mg. Last lipid panel: 06/20/22 LDL=67, TG=95. Will update labs today. Does not mychart. Verified phone #/address to contact re: results. Assessment & Plan (05/07/2023 4:00 PM CEMENT PAVER): Chronic problem, controlled on current Atorvastatin 40mg. Last lipid panel: 06/20/22 LDL=67, TG=95. No changes at this time. Assessment & Plan (10/10/2022 2:48 PM CDT): Chronic problem, controlled on current Atorvastatin 40mg. Last lipid panel: 06/20/22 LDL=67, TG=95. No changes at this time. Assessment & Plan (07/04/2022 4:18 PM CDT): Chronic problem, controlled on current Atorvastatin 40mg. Last lipid panel: 08/14/21 LDL=82, TG=81. No changes at this time. Assessment & Plan (08/14/2021 4:20 PM CDT): Chronic, well controlled Low fat Low cholesterol diet Exercise Continue statin therapy Check lipid profile Assessment & Plan (08/31/2020 2:57 PM CDT): Goal of treatment , LDL cholesterol less than 100 ( less than 70 in patients with history of heart attacks and / or strokes ) NonHDL cholesterol ( total cholesterol minus HDL cholesterol ) goal less than 130 ( less than 100 in patients with history of heart attacks and / or strokes ) Low cholesterol, low fat diet was discussed and advised. Daily exercise On statin therapy with atorvastatin Assessment & Plan (03/28/2020 3:04 PM CEMENT PAVER): Goal of treatment , LDL cholesterol less than 100 ( less than 70 in patients with history of heart attacks and / or strokes ) NonHDL cholesterol ( total cholesterol minus HDL cholesterol ) goal less than 130 ( less than 100 in patients with history of heart attacks and / or strokes ) Low cholesterol, low fat diet was discussed and advised. Daily exercise On statin therapy Lipitor Assessment & Plan (11/30/2019 2:14 PM CDT): Goal of treatment , LDL cholesterol less than 100 ( less than 70 in patients with history of heart attacks and / or strokes ) NonHDL cholesterol ( total cholesterol minus HDL cholesterol ) goal less than 130 ( less than 100 in patients with history of heart attacks and / or strokes ) Low cholesterol, low fat diet was discussed and advised. Daily exercise On statin therapy with Lipitor Assessment & Plan (08/26/2019 1:52 PM CDT): At goal on current medications. Continue statin therapy. Assessment & Plan (05/21/2019 10:07 AM CEMENT PAVER): At goal on current medications. Continue statin therapy. Assessment & Plan (02/04/2019 2:45 PM CDT): At goal on current medications. Continue statin therapy. Assessment & Plan (11/10/2018 1:57 PM CDT): Goal of treatment , LDL cholesterol less than 100 ( less than 70 in patients with history of heart attacks and / or strokes ) NonHDL cholesterol ( total cholesterol minus HDL cholesterol ) goal less than 130 ( less than 100 in patients with history of heart attacks and / or strokes ) Low cholesterol, low fat diet was discussed and advised. Daily exercise On statin therapy Check lipid profile Assessment & Plan (05/14/2018 2:01 PM CEMENT PAVER): Goal of treatment , LDL cholesterol less than 100 ( less than 70 in patients with history of heart attacks and / or strokes ) NonHDL cholesterol ( total cholesterol minus HDL cholesterol ) goal less than 130 ( less than 100 in patients with history of heart attacks and / or strokes ) Low cholesterol, low fat diet was discussed and advised. Daily exercise On statin therapy Assessment & Plan (12/23/2017 12:23 PM CDT): Goal of treatment , LDL cholesterol less than 100 ( less than 70 in patients with history of heart attacks and / or strokes ) NonHDL cholesterol ( total cholesterol minus HDL cholesterol ) goal less than 130 ( less than 100 in patients with history of heart attacks and / or strokes ) Low cholesterol, low fat diet was discussed and advised. Daily exercise On statin therapy Assessment & Plan (08/05/2017 3:21 PM CDT): Goal of treatment , LDL cholesterol less than 100 ( less than 70 in patients with history of heart attacks and / or strokes ) NonHDL cholesterol ( total cholesterol minus HDL cholesterol ) goal less than 130 ( less than 100 in patients with history of heart attacks and / or strokes ) Low cholesterol, low fat diet was discussed and advised. Daily exercise On statin therapy Type 2 diabetes mellitus wit h hyperglycemia, with long-term current use of insulin 12/10/2016 Assessment & Plan (12/09/2024 2:15 PM CDT): Chronic problem. A1c at goal and improved from 6.9% 08/04/24 to now 6.7%. Current medications: Ozempic 2 mg weekly. Insulin Glargine 16 units in morning, 16 units at bedtime Humalog twice daily before breakfast & dinner (with any meal). For blood sugar less than 80: 0 For blood sugar 81-150: 4 units For blood sugar 151-200: 6 units For blood sugar 201-250: 8 units For blood sugar 251-300: 10 units For blood sugar Over 300: 12 units *for lunch: take 2 units less on above scale UTD on labs. UTD on DM eye exam (11/2022 no DMR). Had appt summer; letter sent to get copy or report. Discussed with Nancy Mae: Strive for regular exercise (30min most days) and diet (get at least 4-5 servings of fruit and veggies daily, avoid processed foods, increase lean protein intake and decrease carb portions as well as fruit juices, regular soda & desserts). Watch carbs and simple sugars. Check the blood sugar: Freestyle suzette 3+. Check the feet daily for skin breakdown and infection. Assessment & Plan (08/04/2024 2:01 PM CDT): Chronic problem. A1c at goal and improved from 7.3% 04/21/24 to now 6.9%. Increase water & protein intake. Cut back on soda intake. [employer] protein drinks at [employer] & [employer] at [facility]. -will increase ozempic from 1mg to 2mg on next refill. Current medications: Ozempic 2 mg weekly. Insulin Glargine 16 units in morning, 16 units at bedtime Humalog twice daily before breakfast & dinner (with any meal). For blood sugar less than 80: 0 For blood sugar 81-150: 4 units For blood sugar 151-200: 6 units For blood sugar 201-250: 8 units For blood sugar 251-300: 10 units For blood sugar Over 300: 12 units *for lunch: take 2 units less on above scale Will update alb/lipid. Does not mychart. Verified phone #/address to contact re: results. UTD on DM eye exam (11/2022 no DMR) Discussed with Nancy Mae: Strive for regular exercise (30min most days) and diet (get at least 4-5 servings of fruit and veggies daily, avoid processed foods, increase lean protein intake and decrease carb portions as well as fruit juices, regular soda & desserts). Watch carbs and simple sugars. Check the blood sugar: Freestyle suzette 3. Check the feet daily for skin breakdown and infection. Assessment & Plan (04/21/2024 1:40 PM CEMENT PAVER): Chronic problem. A1c not at goal but improved from 7.7% 12/25/23 to now 7.3%. no changes at this time. Current medications: Ozempic 1mg weekly. Semglee 16 units in morning, 16 units at bedtime Humalog twice daily before breakfast & dinner (with any meal). For blood sugar less than 80: 0 For blood sugar 81-150: 4 units For blood sugar 151-200: 6 units For blood sugar 201-250: 8 units For blood sugar 251-300: 10 units For blood sugar Over 300: 12 units *for lunch: take 2 units less on above scale UTD on labs UTD on DM eye exam (11/2022 no DMR) Discussed with Nancy Mae: Strive for regular exercise (30min most days) and diet (get at least 4-5 servings of fruit and veggies daily, avoid processed foods, increase lean protein intake and decrease carb portions as well as fruit juices, regular soda & desserts). Watch carbs and simple sugars. Check the blood sugar: Freestyle suzette 3. Check the feet daily for skin breakdown and infection. Assessment & Plan (12/25/2023 1:57 PM CDT): Chronic problem. A1c worsened from 7.1% 08/14/23 to now 7.9%. Fearful of going low on current SSI. Will drop insulin scale; see new sliding scale for insulin. To make sure she's taking the insulin with meals. Current medications: Ozempic 1mg weekly. Semglee 16 units in morning, 16 units at bedtime Humalog twice daily before breakfast & dinner (with any meal). For blood sugar less than 80: 0 For blood sugar 81-150: 4 units For blood sugar 151-200: 6 units For blood sugar 201-250: 8 units For blood sugar 251-300: 10 units For blood sugar Over 300: 12 units *for lunch: take 2 units less on above scale UTD on labs UTD on DM eye exam (11/2022 no DMR) Discussed with Nancy Mae: Strive for regular exercise (30min most days) and diet (get at least 4-5 servings of fruit and veggies daily, avoid processed foods, increase lean protein intake and decrease carb portions as well as fruit juices, regular soda & desserts). Watch carbs and simple sugars. Check the blood sugar: Freestyle suztete 3. Check the feet daily for skin breakdown and infection. Assessment & Plan (08/14/2023 2:16 PM CDT): Chronic problem. A1c improved from 7.4% 05/06/23 to now 7.1%. Current medications: Ozempic 1mg weekly. Semglee 16 units in morning, 16 units at bedtime Humalog twice daily before breakfast & dinner (with any meal). For blood sugar less than 80: 0 For blood sugar 81-150: 8 units For blood sugar 151-200: 10 units For blood sugar 201-250: 12 units For blood sugar 251-300: 14 units For blood sugar Over 300: 16 units *for lunch: take 2 units less on above scale Will update labs today. Does not mychart. Verified phone #/address to contact re: results. UTD on DM eye exam (11/2022) Discussed with Nancy Mae: Strive for regular exercise (30min most days) and diet (get at least 4-5 servings of fruit and veggies daily, avoid processed foods, increase lean protein intake and decrease carb portions as well as fruit juices, regular soda & desserts). Watch carbs and simple sugars. Check the blood sugar: Freestyle suzette. Check the feet daily for skin breakdown and infection. Assessment & Plan (05/06/2023 2:48 PM CEMENT PAVER): Chronic problem. Stable but uncontrolled. A1c was 8.1% 06/2022 & now 8.0% Has been taking insulin w/o eating if she has alarm from [facility]. Stressed to only take Novolog BEFORE eating--not without food. Current medications: Ozempic 1mg weekly. Semglee 16 units in morning, 16 units at bedtime Humalog twice daily before breakfast & dinner (with any meal). For blood sugar less than 80: 0 For blood sugar 81-150: 8 units For blood sugar 151-200: 10 units For blood sugar 201-250: 12 units For blood sugar 251-300: 14 units For blood sugar Over 300: 16 units *for lunch: take 2 units less on above scale Will update MA/Cr today. Will update labs today. Does not mychart. Verified phone #/address to contact re: results. Had eye exam at Dr Henley's office 2022; never rec'd report after letter 06/2022. Assessment & Plan (10/10/2022 3:15 PM CDT): Chronic problem. Stable but uncontrolled. A1c was 8.1% 06/2022 & now 8.0% Will increase ozempic to 1mg weekly Will increase semglee to 16 units twice daily. Current medications: Ozempic 1mg weekly. Semglee 16 units in morning, 16 units at bedtime Humalog twice daily before breakfast & dinner For blood sugar less than 80: 0 For blood sugar 81-150: 8 units For blood sugar 151-200: 10 units For blood sugar 201-250: 12 units For blood sugar 251-300: 14 units For blood sugar Over 300: 16 units *for lunch: take 2 units less on above scale Will update MA/Cr today. Will update labs today. Does not mychart. Verified phone #/address to contact re: results. Had eye exam at Dr Henley's office 2022; never rec'd report after letter 06/2022. Assessment & Plan (07/04/2022 4:17 PM CDT): Chronic problem, not at goal & worsening. Has been unable to obtain Trulicity for >3 mos. Will switch to Ozempic today. Sample given & sent to pharmacy. Ozempic 0.25mg weekly x2 then increase to 0.5mg weekly. Reviewed medication side effects & scheduling. Current medications: Ozempic 0.25mg weekly x2 wks then increase to 0.5mg weekly. Semglee 12 units in morning, 16 units at bedtime Humalog twice daily before breakfast & dinner For blood sugar less than 80: 0 For blood sugar 81-150: 8 units For blood sugar 151-200: 10 units For blood sugar 201-250: 12 units For blood sugar 251-300: 14 units For blood sugar Over 300: 16 units *for lunch: take 2 units less on above scale Discussed possible need to start lowering insulin if persistently lowering blood sugars once starting the ozempic. Reports eye exam [address] Henley. Letter sent to get copy of results. Discussed the need to strive for regular exercise (30min most days) and diet (get at least 4-5 servings of fruit and veggies daily, avoid processed foods, increase lean protein intake and decrease carb portions as well as fruit juices, regular soda & desserts). Watch carbs and simple sugars. Check the feet daily for skin breakdown and infection. Assessment & Plan (12/25/2021 4:02 PM CDT): Hba1c was Lab Results Component Value Date HGBA1C 7.3 12/25/2021 today, indicating suboptimal DM control with hypoglycemia Goal Hba1c and blood glucose explained Diet and exercise were advised Prevention and treatment of hyypoglcyemia were discussed with the patient Blood glucose monitoring : [facility] Adjustment to medications: Continue taking Humalog, as follows : Humalog, before breakfast and dinner : < 80 0 81-150 8 151-200 10 201-250 12 251-300 14 Over 300 16 For lunch take, take 2 less units Stay on Trulicity , 3 ,mg weekly Will start process for insulin pump Assessment & Plan (08/14/2021 3:13 PM CDT): Hba1c was Lab Results Component Value Date HGBA1C 7.1 08/14/2021 today, indicating adequate DM control Goal Hba1c and blood glucose explained Diet and exercise were advised Prevention and treatment of hyypoglcyemia were discussed with the patient Blood glucose monitoring : [facility] Adjustment to medications: Semglee take 16 units at beditme and 12 units in the morning Humalog, before breakfast and dinner : < 80 0 81-150 8 151-200 10 201-250 12 251-300 14 Over 300 16 For lunch take, take 2 less units Stay on Trulicity , 3 ,mg weekly Assessment & Plan (08/31/2020 2:56 PM CDT): Hba1c was Lab Results Component Value Date HGBA1C 7.2 08/31/2020 today, indicating suboptimal DM control with hypoglycemia Goal blood sugars in the 120-150 range , with Hb1c under 7.0 % was explained 1800 calorie, consistent carb diet recommended. No more than 30-45 grams of carbs per meal recommended, as well as avoiding high concentrated sweet drinks . 25-45 min daily exercise, combining both aerobic and resistance exercise recommended. The need to monitor blood glucose before meals and bedtime was discussed. Prevention and treatment of hyypoglcyemia discussed. Continue current insulin regimen with Lantus and Humalog ac Start CGM with Freestyle Suzette Assessment & Plan (03/28/2020 3:03 PM CEMENT PAVER): Hba1c was Lab Results Component Value Date HGBA1C 7.7 03/28/2020 today, indicating suboptimal DM control Goal blood sugars in the 120-150 range , with Hb1c under 7.0 % was explained 1800 calorie, consistent carb diet recommended. No more than 30-45 grams of carbs per meal recommended, as well as avoiding high concentrated sweet drinks . 25-45 min daily exercise, combining both aerobic and resistance exercise recommended. The need to monitor blood glucose before meals and bedtime was discussed. Prevention and treatment of hyypoglcyemia discussed. Increase Trulicity to 3.0 mg weekly Assessment & Plan (11/30/2019 2:13 PM CDT): Hba1c was Lab Results Component Value Date HGBA1C 7.8 11/30/2019 today, indicating sub-optimal DM control 1800 calorie, consistent carb diet recommended. No more than 30-45 grams of carbs per meal recommended, as well as avoiding high concentrated sweet drinks . 25-45 min daily exercise, combining both aerobic and resistance exercise recommended. The need to monitor blood glucose before meals and bedtime was discussed. Prevention and treatment of hyypoglcyemia discussed. Insulin dose: Continue current Add Bupropion, it will help with appetite control and weight loss, helping diabetes Assessment & Plan (08/26/2019 1:54 PM CDT): BG acceptable per pt report. Higher numbers reported represent pc number, especially after snacking. No change to current medication. BG goals reviewed. Advised to eliminate carb snacks, watch meal portions. Daily outdoor walking encouraged. Assessment & Plan (05/21/2019 10:04 AM CEMENT PAVER): A1c 7.3. Improved however despite A1c, BGlog shows majority of BG > 200. Reviewed at length that issues are related to lack of effort with diet. Advised to keep specific meal schedule, decrease snacks. Continue same medication. Start Rybelsus 3 mg for one month. Provided with sample. Action and how to take medication reviewed. Assessment & Plan (02/04/2019 2:46 PM CDT): A1c 7.3 improved. Continue with same medication. Extensive time spent reviewing appropriate time and spacing of meals in relation to BG control. BG goals reviewed. Encouraged increasing exercise as tolerated. Assessment & Plan (11/10/2018 1:57 PM CDT): Hba1c was Lab Results Component Value Date HGBA1C 7.7 % 11/10/2018 today, indicating sub-optimal DM control 1800 calorie, consistent carb diet recommended 25-45 min daily exercise, combining both aerobic and resistance exercise recommended. The need to monitor blood glucose before meals and bedtime was discussed. Dose of basal and prandial insulin adjusted as follows: Samples of Toujeo and Apidra given Also Bydureon Prevention and treatment of hyypoglcyemia discussed. Assessment & Plan (05/14/2018 1:59 PM CEMENT PAVER): Hba1c was Lab Results Component Value Date HGBA1C 7.3 05/14/2018 today, indicating adequate DM control 1800 calorie, consistent carb diet recommended 25-45 min daily exercise, combining both aerobic and resistance exercise recommended. The need to monitor blood glucose before meals and bedtime was discussed. Restart Bydureon Prevention and treatment of hyypoglcyemia discussed. Assessment & Plan (12/23/2017 12:02 PM CDT): Your Hba1c today was: Lab Results Component Value Date HGBA1C 7.9 12/23/2017 meaning a 3 month average sugar of : 177 Your goal hba1c is under 7.0 to prevent usp diabetes complications ( eye , kidney and nerve damage ) . Your goal sugars are in the 90-130 range Daily aerobic ( walking, riding a bike, swimming ) and resistance exercises ( light weight lifting, resistance band stretching ) for at least 30 minutes is recommended If you can not walk, chair exercises is very acceptable. As little as 15-20 minutes exercise , in one or two sessions a day, is still very helpful and will help to improve your diabetes control . Eat small portion meals, no more than 1800 calories Diet Try to eat not more than than 2-3 servings of carbs ( starches ) wiith your meals. Avoid soft drinks, including regular sodas , fruit juices and sweetened tea. Drink water instead. Eat plenty of green and leafy vegetables, including salads. Take your medications regularly,including your insulin injections. Monitor your sugar levels with finger sticks regularly and keep a log sheet or book. Bring your sugar meter and /or a log book or log sheet to every office visit. Start Bydureon once a week In about two weeks, cut down Novolog , before meals by 2-3 units. Assessment & Plan (08/05/2017 3:34 PM CDT): Hba1c was Lab Results Component Value Date HGBA1C 7.6 08/05/2017 today, indicating adequate DM control 1800 calorie, consistent carb diet recommended 30 min daily exercise, combining both aerobic and resistance exercise is strongly recommended and needed as part of diabetes management plan. The need to monitor blood glucose before meals and bedtime was discussed. Take prandial insulin before meals based on carb intake and blood glucose readings. Prevention and treatment of hyypoglcyemia discussed. Assessment & Plan (03/25/2017 2:52 PM CEMENT PAVER): Hba1c was 7.2 today, indicating adequate DM control 1800 calorie, consistent carb diet recommended 30 min daily exercise, combining both aerobic and resistance exercise is strongly recommended and needed as part of diabetes management plan. The need to monitor blood glucose before meals and bedtime was discussed. Take prandial insulin before meals based on carb intake and blood glucose readings. Prevention and treatment of hyypoglcyemia discussed. Lantus, 16 units twice a day , morning and bedtime Humalog , before meals as follows: For sugar under 80, none 80-140, take 6 units 140-180 take 8units 181-220, 10 units 221-260, 12 units Over 261, 14 units Over 300, take 16 units If not sure if you are eating, eat first and then take the Humalog If you are going to be very busy after a meal, take 2-3 units less . Assessment & Plan (12/10/2016 3:00 PM CDT): Hba1c was 7.0 today, indicating adequate DM control 1800 calorie, consistent carb diet recommended 30 min daily exercise, combining both aerobic and resistance exercise is strongly recommended and needed as part of diabetes management plan. The need to monitor blood glucose before meals and bedtime was discussed. Take prandial insulin before meals based on carb intake and blood glucose readings. Prevention and treatment of hyypoglcyemia discussed. Lower Lantus to 16 u every 12 hours. Hypertension associated with diabetes 12/10/2016 Assessment & Plan (12/09/2024 1:51 PM CDT): Chronic problem; controlled on current carvedilol 6.25mg bid, lasix 20mg daily. Sales Consultant Residential Manager took her off losartan & amlodipine. Assessment & Plan (08/04/2024 1:20 PM CDT): Chronic problem; controlled on current carvedilol 6.25mg bid, lasix 20mg daily. Sales Consultant Residential Manager took her off losartan & amlodipine. Assessment & Plan (04/21/2024 1:11 PM CEMENT PAVER): Chronic problem; controlled on current carvedilol 6.25mg bid. Sales Consultant Residential Manager took her off losartan & amlodipine. Assessment & Plan (12/25/2023 1:57 PM CDT): Chronic problem; BP controlled on current carvedilol 6.25mg bid. Sales Consultant Residential Manager took her off losartan & amlodipine. Assessment & Plan (08/14/2023 2:42 PM CDT): Chronic problem; BP controlled on current carvedilol 6.25mg bid, losartan 50mg daily, amlodipine 2.5mg daily. Will update labs today. Does not mychart. Verified phone #/address to contact re: results. Assessment & Plan (05/07/2023 4:00 PM CEMENT PAVER): Chronic problem but very hypotensive today. Orthostatic hypotension today (see BP readings). Reviewed red flags; what would warrant ED eval. To call cardiology today re: below. Asked her to check BP at home, push fluids. Safety precautions when up. Aware to stand/wait before walking. brought Mrs Mae in to office today. Call cardiology re: Dizziness for 3 months. STOP amlodipine DECREASE losartan--cut in half to make it 50mg daily. Assessment & Plan (10/10/2022 2:47 PM CDT): Chronic problem, controlled on current regimen. Carvedilol 6.25mg twice daily, losartan 100mg daily, amlodipine 2.5mg daily, lasix 20mg daily. No changes today. Assessment & Plan (07/04/2022 4:14 PM CDT): Chronic problem, controlled on current regimen. Carvedilol 6.25mg twice daily, losartan 100mg daily, amlodipine 2.5mg daily, lasix 20mg daily. No changes today. Assessment & Plan (08/14/2021 4:20 PM CDT): Goal blood pressure is less than 140/85 Low salt diet was discussed andd recommended The importance of daily aerobic exercise was also emphasized. Continue current meds, including YONNY-I or ARB, e.g. Check MA, GFR Assessment & Plan (08/31/2020 2:56 PM CDT): Goal blood pressure is less than 140/85 Low salt diet was discussed andd recommended The importance of daily aerobic exercise was also emphasized. Continue current meds, including YONNY-I or ARB, e.g. Losartan Assessment & Plan (03/28/2020 3:04 PM CEMENT PAVER): Goal blood pressure is less than 140/85 Low salt diet was discussed andd recommended The importance of daily aerobic exercise was also emphasized. Continue current meds, including YONNY-I or ARB, e.g. Losartan Assessment & Plan (11/30/2019 2:13 PM CDT): Goal blood pressure is less than 140/85 Low salt diet was discussed andd recommended The importance of daily aerobic exercise was also emphasized. Continue current meds, including YONNY-I or ARB, e.g. Losartan Assessment & Plan (08/26/2019 1:52 PM CDT): Continue current medication. Check random home BP Assessment & Plan (05/21/2019 10:07 AM CEMENT PAVER): Controlled on current medications. Continue plan. Assessment & Plan (02/04/2019 2:45 PM CDT): Controlled on current medications. Continue plan. Assessment & Plan (11/10/2018 1:57 PM CDT): Goal blood pressure is less than 140/85 Low salt diet recommended Daily aerobic exercise Continue current meds, including YONNY-I or ARB Check microalbumin Assessment & Plan (05/14/2018 1:59 PM CEMENT PAVER): Goal blood pressure is less than 140/85 Low salt diet recommended Daily aerobic exercise Continue current meds, including YONNY-I or ARB Assessment & Plan (08/05/2017 3:22 PM CDT): Goal blood pressure is less than 140/85 Low salt diet recommended Daily aerobic exercise Continue current meds, including YONNY-I or ARB Assessment & Plan (03/25/2017 2:44 PM CEMENT PAVER): Goal blood pressure is less than 140/85 Low salt diet recommended Daily aerobic exercise Continue current meds, including YONNY-I or ARB Assessment & Plan (12/10/2016 3:01 PM CDT): Goal blood pressure is less than 140/85 Low salt diet recommended Daily aerobic exercise Continue current meds, including YONNY-I or ARB Pain in shoulder 04/19/2016 Encounters Date Type Department Care Team Description 12/22/2024 Orders Only [facility] Diabetes and Endocrinology [address] [place] [address] [phone] ProviderAlexia MD 12/09/2024 1:30 PM CDT Office Visit [facility] Diabetes and Endocrinology [address] [place] [phone] Desiree Hernández, APRON OPERATOR Type 2 diabetes mellitus with hyperglycemia, with long-term current use of insulin (HCC) (Primary Dx); Hypertension associated with diabetes (HCC); Hyperlipidemia associated with type 2 diabetes mellitus (HCC); Acquired hypothyroidism 10/05/2024 Telephone [facility] [address] [phone] Jessica Hanna MD Recent Office Notes 09/29/2024 Telephone [facility] [address] [phone] Jessica Hanna MD PA in [facility] Ozempic ; [facility] approval notice Ozempic from Last 3 Months Surgical History Surgery Date Site/Laterality Comments APPENDECTOMY Appendectomy TONSILLECTOMY Tonsillectomy KNEE ARTHROPLASTY Knee replacement CATARACT EXTRACTION 07/13/2021 - 08/11/2021 Left FLUORO GUIDED ASPIRATION OR INJECTION LARGE JOINT LEFT 12/31/2023 Left Medical History Medical History Date Comments Hypertension Hypertension Diabetes mellitus (HCC) Diabetes mellitus; Comments: [facility] 06/13/2016 - Hx Other Medical hypothyroid; Co mments: [facility] 06/13/2016 - Hx Other Medical hyperlipidemia; Comments: [facility] 06/13/2016 - Hx Other Medical L shoulder repa lcement; Comments: [facility] 06/13/2016 - History of partial knee replacement 03/03/2017 Right Anemia Covid Family History Medical History Relation Name Comments Lung cancer Father Cancer, lung; C ause of : Cancer, lung Diabetes Mother Diabetes mellit us; Hypertension Mother Hypertension; Diabetes Sister 1 Diabetes mellit us; Hypertension Sister 2 Hypertension; Relation Name Status Comments Father Mother Sister 1 Sister 2 Social History Tobacco Use Types Packs/Day Years Used Date Smoking Tobacco: Never Smokeless Tobacco: Never Tobacco Cessation:Counseling Given: Not Answered Alcohol Use Standard Drinks/Week Comments No 0 [...] on file Legal Sex Female 3:35 AM CEMENT PAVER Gender Identity Not on file Sexual Orientation Not on file Obstetrics History Last Filed Vital Signs Vital Sign Reading Time Taken Comments Blood Pressure 130/80 12/09/2024 1:43 PM CDT Pulse 67 12/09/2024 1:43 PM CDT Temperature - - Respiratory Rate 18 12/09/2024 1:43 PM CDT Oxygen Saturation 99% 12/31/2023 10:43 AM CDT Inhaled Oxygen Concentration - - Weight 81.3 kg (179 lb 3.2 oz) 12/09/2024 1:43 P M CDT Height 162.6 cm (5' 4) 12/09/2024 1:43 PM CDT Body Mass Index 30.76 12/09/2024 1:43 PM CDT Plan of Treatment Health Maintenance Due Date Last Done Comments Colon Cancer Screening-Colonoscopy 1950 Hepatitis C Screening 1950 Osteoporosis Screening-Bone Density Scan 1950 Hepatitis B Screening 07/12/1967 Zoster Vaccine (1 of 2) 07/12/1999 Well Visit 65+ 2014 Depression Screening 12/25/2022 12/25/2021, 08/31/2020, 03/28/2020, Additional history exists Influenza Vaccine (#1) 2024 01/30/2019 Fall Risk Assessment 12/30/2024 12/31/2023 eGFR 04/21/2025 04/21/2024, 10/14, 08/14/2023, Additional history exists Hemoglobin A1C 06/11/2025 12/09/2024, 2 06/2024, 04/21/2024, Additional history exists Albumin Creatinine Ratio, Urine 08/04/2025 08/04/2024, 08/14/2023, 10/10/2022, Additional history exists Foot Exam 08/04/2025 08/04/2024, 12/13, 10/10/2022, Additional history exists Lipid Panel 08/04/2025 08/04/2024, 10/14, 08/14/2023, Additional history exists Dilated Eye Exam 09/09/2025 09/09/2024, 02/2023, 06/10/2019, Additional history exists DTaP/Tdap/Td Vaccine (3 - Td or Tdap) 09/17/2027 09/16/2017, 04/14/2015 Pneumococcal vaccine 65+ Completed 019, 09/16/2017, 04/14/2017 Procedures Procedure Name Priority Date/Time Associated Diagnosis Comments POCT GLUCOSE Routine 12/09/2024 1:43 PM CDT Type 2 diabetes mellitus with hyperglycemia, with long-term current use of insulin (HCC) POCT HEMOGLOBIN A1C Routine 12/09/2024 1 :43 PM CDT Type 2 diabetes mellitus with hyperglycemia, with long-term current use of insulin (HCC) HM DIABETES EYE EXAM Routine 09/09/2024 8:09 AM CDT LIPID PANEL Routine 08/04/2024 12:00 PM CDT Type 2 diabetes mellitus with hyperglycemia, with long-term current use of insulin (HCC) Hyperlipidemia associated with type 2 diabetes mellitus (HCC) ALBUMIN CREATININE RATIO, URINE Routine 08/04/2024 12:00 PM CDT Type 2 diabetes mellitus with hyperglycemia, with long-term current use of insulin (HCC) EGFR Routine 04/21/2024 1:53 PM CEMENT PAVER Hypokalemia from Last 3 Months or Most Recently Relevant to Health Maintenance Results * (ABNORMAL) POCT hemoglobin A1c (12/09/2024 1:43 PM CDT) Hemoglobin A1C, POC 6.7(A) 4.0 - 5.6 % Capillary blood 12/09/2024 1 :43 PM CDT us Desiree Hernández NP POINT OF CARE TEST ORDERA BLES Final Result * (ABNORMAL) POCT glucose (12/09/2024 1:43 PM CDT) Pathologist [facility] Glucose Blood, POC 130 Normal Fasting 70 - 100, Random <200 mg/dL Comment:PPG 4 Hrs Blood 12/09/2024 1:43 PM CDT us Desiree Hernández NP POINT OF CARE TEST ORDERA BLES Final Result * DIABETES EYE EXAM (09/09/2024 8:09 AM CDT) us Historical Provider HEALTH MAINTENANCE Final Result * Albumin Creatinine Ratio, Urine (08/04/2024 12:00 PM CDT) Albumin Ur <12.0 mg/L Comment: Interpretive Data No reference range established. Current interpretive data was last revised 2018. Creatinine Ur 40.5 mg/dL SPENCER AMAYA Comment: Interpretive Data No reference range established. Current interpretive data was last revised 2018. Albumin Creatinine Ratio, Ur See Comment 1 - 29 SPENCER AMAYA Comment:Unable to calculate Urine 08/04/2024 12:0 0 PM CDT 08/04/2024 8:27 PM CDT us Desiree Hernández APRON OPERATOR LAB URINE ORDERABLES Meyrl michelle Result SPENCER AMAYA [id number] [facility] [place] [address] * Lipid panel (08/04/2024 12:00 PM CDT) Cholesterol 142 30 - 199 mg/dL Comment: Interpretive Data Ages < or = 19 years Acceptable: <170 mg/dL Borderline high: 170-199 mg/dL High: >or= 200 mg/dL Ages > or = 20 years Desirable: <200 mg/dL Borderline high: 200-239 mg/dL High: >or= 240 mg/dL Literature References: 1. Expert Panel on Integrated Guidelines for Cardiovascular Health and Risk Reduction in Children and Adolescents. Pediatrics 2011;128:S213 2. NCEP Expert Panel. Circulation 2004;110:227 Current Interpretive Data was last revised on 2017. Triglycerides 78 <=149 mg/dL SPENCER AMAYA Comment: Interpretive Data Ages < or = 9 years Acceptable: <75 mg/dL Borderline high: 75-99 mg/dL High: >or= 100 mg/dL Ages 10 to 20 years Acceptable: <90 mg/dL Borderline high: 90-129 mg/dL High: >or= 130 mg/dL Ages > or = 20 years Desirable: <150 mg/dL Borderline high: 150-199 mg/dL High: 200-499 mg/dL Very high: >or= 499 mg/dL Literature References: 1. Expert Panel on Integrated Guidelines for Cardiovascular Health and Risk Reduction in Children and Adolescents. Pediatrics 2011;128:S213 2. NCEP Expert Panel. Circulation 2004;110:227 Current Interpretive Data was last revised on 2017. HDL 59 >=40 mg/dL SPENCER AMAYA Comment: Interpretive Data Ages < or = 19 years Acceptable: >45 mg/dL Borderline low: 40-45 mg/dL Low: <40 mg/dL Ages > or = 20 years Desirable: >or= 60 mg/dL Low: <40 mg/dL Literature References: 1. Expert Panel on Integrated Guidelines for Cardiovascular Health and Risk Reduction in Children and Adolescents. Pediatrics 2011;128:S213 2. NCEP Expert Panel. Circulation 2004;110:227 Current Interpretive Data was last revised on 2017. LDL, calculated 68 <=129 mg/dL SPENCER AMAYA Comment: Interpretive Data Ages < or = 19 years Acceptable: <110 mg/dL Borderline high: 110-129 mg/dL High: >or= 130 mg/dL Ages > or = 20 years Optimal: <100 mg/dL Near optimal: 100-129 mg/dL Borderline high: 130-159 mg/dL High: >160 mg/dL Calculated using the Escobar LDL-C estimating equation. This equation was implemented on 2023. Prior to this date LDL-C was estimated using the Friedewald equation. Literature References: 1. Expert Panel on Integrated Guidelines for Cardiovascular Health and Risk Reduction in Children and Adolescents. Pediatrics 2011;128:S213 2. NCEP Expert Panel. Circulation 2004;110:227 3. Escobar M et al. MANDI Cardiol. 2020 August 12;5(5):540-548. doi: 10.1001/[email or web address] Current Interpretive Data was last revised on 2023. Non-HDL Cholesterol 83 mg/dL SPENCER AMAYA Comment: Interpretive Data Ages < or = 19 years Acceptable: <120 mg/dL Borderline high: 120-144 mg/dL High: >145 mg/dL Ages > or = 20 years When triglycerides are >200 mg/dL, Non-HDL cholesterol is a secondary target of therapy with treatment goals that are 30 mg/dL greater than the LDL cholesterol target. Literature References: 1. Expert Panel on Integrated Guidelines for Cardiovascular Health and Risk Reduction in Children and Adolescents. Pediatrics 2011;128:S213 2. NCEP Expert Panel. Circulation 2004;110:227 Current Interpretive Data was last revised on 2017. Chol/HDL ratio 2 SPENCER Blood 08/04/2024 12:0 0 PM CDT 08/04/2024 8:27 PM CDT us Desiree Hernández APRON OPERATOR LAB BLOOD ORDERABLES Meryl l Result Performing Organization Address City/[facility] Co de Phone Number SPENCER AMAYA [id number] [employer] [place] [address] * eGFR (04/21/2024 1:53 PM CEMENT PAVER) eGFR 71 >=60 mL/min/1. 73 m2 Comment: Interpretive Data Reference Interval Normal >/= 90 mL/min/1.73m2 Mildly decreased* 60 - 89 mL/min/1.73m2 Mildly to moderately decreased 45 - 59 mL/min/1.73m2 Moderately to severely decreased 30 - 44 mL/min/1.73m2 Severely decreased 15 - 29 mL/min/1.73m2 Kidney Failure < 15 mL/min/1.73m2 *Relative to young adult level Estimated glomerular filtration rate is determined by the 2020 CKD-EPI equation recommended by the National Kidney Foundation (A Unifying Approach to GFR Estimation: Recommendations of the NKF-ASK Task Force on Reassessing the Inclusion of Race in Diagnosing Kidney Disease, JASN 2020). The CKD-EPI equation should not be used for patients with unstable renal function and has not been validated in children and those over 70. Current interpretive data was last reviewed 2021. Blood 04/21/2024 1:53 PM CEMENT PAVER 04/21/2024 9:33 PM CEMENT PAVER us Desiree Hernández APRON OPERATOR LAB BLOOD ORDERABLES Meryl l Result SPENCER AMAYA [id number] [employer] [place] [place] [address] from Last 3 Months or Most Recently Relevant to Health Maintenance Insurance [facility] Member Subscriber Plan / Payer (Ef fective 2016-Present) Name:NANCY MAE Relation to Subscriber:Self Name:Nancy Mae Payer ID:[id number] (NAIC) Type:MEDICARE RISK OTHER Address: [address] EMPLO[employer] H[employer]/PPO Address: [id number] [place] [address] [employer] H[employer]/PPO Address: [address] [address] [place] [address] [facility] CHO[facility] PPO Care Teams Proctologist Relationship Specialty [place] [id number] [facility] [address] [place] [address] PCP - General Family Practice 10/10/22 [place] [address] [facility] [address] [place] [address] Consulting Physician Endocrinology Diabetes & Metabolism 05/12/18 [place] [address] [place] [address] Consulting Physician Cardiology 11/30/19
[2024-12-24 18:14] LABS: Hematocrit 39.3 % (37.0-47.0); Hemoglobin 12.8 g/dL (12.0-15.0); Immature Granulocyte Percent A 0.3 % (0-0.5); Lymphocytes Absolute Auto 2.21 K/mm3 (0.9-3.2); Mean Corpuscular HGB Conc 32.6 g/dl (32-36); Mean Corpuscular Hemoglobin 29.0 pg (26-34); Mean Corpuscular Volume 89.1 fl (80-100); Nucleated Red Blood Cells Absolute Auto 0.000 K/mm3 (0.0-0.012); Nucleated Red Blood Cells Perc 0.0 % (0.0-0.2); Platelet Count Result 219 k/mm3 (150-375); Red Blood Count 4.41 M/mm3 (4.2-5.4); White Blood Count 7.5 K/mm3 (4.5-10.0)
[2024-12-24 18:31] LABS: Hemoglobin A1C 7.0 % (<5.7)
[2024-12-24 18:47] LABS: Add Urine Microscopic? YES; Appearance Urine Cloudy (Clear); Glucose Urine UA Negative (Negative); Leukocyte Esterase Ur 2+ LEU/UL (Negative); Nitrate Urine Negative (Negative); Non Pathogenic Casts 0-2; Specific Grav Ur 1.017 (1.001-1.035)
[2024-12-24 19:02] LABS: MALB Creatinine Ratio 10.6 mg/g (0-30)
[2024-12-24 19:08] LABS: Alanine Aminotransferase 19 U/L (6-35); Albumin Level 4.1 g/dL (3.5-5.1); Alkaline Phosphatase 91 U/L (38-126); Anion Gap 9 mmol/L (4-12); Aspartate Amino Transferase 62 U/L (14-36); Bilirubin,Total 1.2 mg/dL (0.2-1.3); Blood Urea Nitrogen 13 mg/dL (7-17); Calcium 9.3 mg/dL (8.4-10.2); Carbon Dioxide 27 mmol/L (22-30); Chloride 100 mmol/L (98-107); Cholesterol 140 mg/dL (0-200); Estimated Glomerular Filt Rate > 60; Glucose 134 mg/dL (65-110); HDL Direct 45 mg/dL; Potassium 3.6 mmol/L (3.4-5.0); Sodium 136 mmol/L (137-145); Total Protein 7.7 g/dL (6.3-8.2); Triglycerides 76 mg/dL (<150)
[2024-12-24 19:44] LABS: Thyroid Stimulating Hormone 0.303 uIU/mL (0.465-4.680)
[2024-12-24 20:03] LABS: Vitamin B12 319.0 pg/mL (239-931)
== END 2024-12-24 10:49 | disposition home or self-care (01) ==
LOC: ANHGOSHLAB 10:50
PROVIDERS: Nurse Practitioner Family; PCP Nurse Practitioner Family; Visit Provider Nurse Practitioner Family
DX: Z00.00 Encounter for general adult medical examination without abnormal findings (principal); E03.9 Hypothyroidism, unspecified; E53.8 Deficiency of other specified B group vitamins; E55.9 Vitamin D deficiency, unspecified; E11.9 Type 2 diabetes mellitus without complications; E78.5 Hyperlipidemia, unspecified; R31.9 Hematuria, unspecified
CPT/HCPCS: 36415; 80053; 80061; 81001; 82043; 82306; 82607; 83036; 84443; 85025; 87077; 87086; 87186

== ENCOUNTER 2025-02-04 13:45 | Emergency (ER) | payer OTHER, SELFPAY ==
[2025-02-04] VITALS (9 sets, daily range): BP systolic 135–154; BP diastolic 75–119; PULSE 65–74; RESP 18–20; TEMP 36.6–36.8; O2SAT 97–100
--- NOTE | ~2025-02-04 | CT_ITS ---
Nancy Barbosa EXAMINATION: CT abdomen pelvis w con COMPARISON: None HISTORY: Vaginal bleeding, weight loss, hx of hysterectomy TECHNIQUE: Axial images were obtained through the abdomen, pelvis post administration of IV contrast. Oral contrast was also administered. Coronal reconstruction images were obtained from the axial views. CT scan performed using dose optimization techniques including the following automated exposure control; adjustment of mA and/or kV; use of iterative reconstruction technique. Automatic exposure control was used to reduce radiation dose. Permanent radiation dose record is archived to PACS. FINDINGS: CT abdomen: LUNG BASES: The lung bases are clear. The visualized portions of the heart and pericardium are unremarkable. LIVER: Unremarkable, liver contours intact, no lesions. SPLEEN: Unremarkable. KIDNEYS: Right Kidney: Unremarkable. No calculi. No hydronephrosis. Left Kidney: Unremarkable. No calculi. No hydronephrosis ADRENAL GLANDS: Unremarkable. PANCREAS: Moderate pancreatic atrophy. GALLBLADDER/BILIARY: Unremarkable. No biliary dilatation. STOMACH AND ESOPHAGUS: Visualized stomach and esophagus within normal limits. BOWEL/MESENTERY: Moderate fecal content. Moderate diverticulosis. No colitis or diverticulitis. Appendix not identified. Mesentery normal. No thickened or dilated loops of small bowel. ADENOPATHY/RETROPERITONEUM: No lymphadenopathy. AORTA/VASCULATURE: Normal caliber aorta. FREE FLUID OR FREE AIR: No free fluid.. CT pelvis: SOLID ORGANS/REPRODUCTIVE: Post hysterectomy. No adnexal mass. BLADDER: Circumferential thickening of the bladder with perivesicular stranding, the bladder is decompressed. OSSEOUS STRUCTURES: No acute osseous abnormality.No suspicious lesions. OVERLYING SOFT TISSUES: Unremarkable. IMPRESSION: Probable cystitis Reviewed, dictated and finalized at location P. IMPRESSION: Probable cystitis
--- OUTSIDE RECORDS SUMMARY | 2025-02-04 13:48 | XMS_ITS | Clinical Summary ---
Author Organization [facility] Address [address] [place] [address] Care Team Providers Care Animal Care Taker Name Role Phone Jessica Hanna MD Unavailable Connor Gayle MD Unavailable Rosanne Olson MD Primary Care Provider Allergies Active Allergy Reactions Criticality Noted Date Comments Adhesive Unknown Adhesive Tape-Silicones Other (See comments) Reaction: UNKNOWN, Clarithromycin Nausea only Reaction: Nausea, Latex Medications carvedilol (COREG) 6.25 mg tablet take 1 tablet by oral route every day with food 0 0 06/14/19 17 Active Additional Information Patient taking differently:6.25 mg2 times daily with meals (bkfst, dinner), Reported on 12/09/2024 sennosides (SENNA) 8.6 mg capsule take 1 capsule by oral route 2 times every day PRN 0 0 06/14/19 17 Active furosemide (LASIX) 20 mg tablet take 1 tablet by oral route every day 0 0 06/14/19 17 Active Additional Information Patient taking differently:20 mgoral Daily, Reported on 12/09/2024 atorvastatin (LIPITOR) 40 mg tablet Take 1 tablet (40 mg total) by mouth daily 3 01/13/20 17 Active aspirin 81 mg tablet Take 2 tablets (162 mg total) by mouth daily Active cholecalciferol (VITAMIN D-3) 5,000 unit capsule Take 1 capsule (5,000 Units total) by mouth daily Active buPROPion (WELLBUTRIN) 75 mg tablet Take 1 tablet (75 mg total) by mouth 2 (two) times a day 60 tablet 11 11/30/[address] (CYMBALTA) 30 mg capsule Take by mouth daily 10/30/19 Active nystatin-triamcino lone cream Apply topically 2 (two) times a day 04/10/20 Active oxybutynin XL (DITROPAN-XL) 10 mg 24 hr tablet Take 1 tablet (10 mg total) by mouth daily 06/29/19 23 Active Senna Laxative 8.6 mg tablet TAKE 1 TABLET BY MOUTH TWICE A DAY NEEDED FOR CONSTIPATION 04/16/19 23 Active celecoxib (CeleBREX) 200 mg capsule Take by mouth daily 09/27/19 23 Active cyclobenzaprine (FLEXERIL) 10 mg tablet TAKE 0.5-1 ORAL TABLET 2 TIMES A DAY 02/17/20 23 Active ibuprofen (ADVIL,MOTRIN) 800 mg tablet TAKE 1 TABLET BY MOUTH EVERY 6 TO 8 HOURS NEEDED 02/17/20 23 Active ROPivacaine (NAROPIN) 5 mg/mL (0.5 %) injection Take 40 mg by injection route. 08/07/19 Active traZODone (DESYREL) 50 mg tablet Take 1 tablet (50 mg total) by mouth daily as needed Active triamcinolone (Kenalog) 10 mg/mL injection Take 40 mg by injection route. 08/07/19 23 Active FreeStyle Suzette 3 Mobile miscIndications:Ty pe 2 diabetes mellitus with hyperglycemia, with long-term current use of insulin ([facility]) Continuous glucose monitor 1 each 05/06/19 24 Active TiZANidine (ZANAFLEX) 2 mg capsuleIndications :Other closed displaced fracture of proximal end of left humerus, sequela TAKE 1 CAPSULE BY MOUTH 3 TIMES A DAY NEEDED FOR MUSCLE SPASMS. 30 capsule 10/13/19 24 Active levothyroxine (SYNTHROID) 100 mcg tabletIndications: Acquired hypothyroidism TAKE 1 TABLET BY MOUTH EVERY DAY 30 tablet 11 03/22/20 24 Active Additional Information Patient taking differently:100 mcg oral Daily,Every day except Friday, Reported on 12/09/2024 HumaLOG 100 unit/mL pen for injectionIndicatio ns:type 2 diabetes mellitus Inject 4-12 Units under the skin 3 (three) times a day before meals 30 mL 3 04/05/20 24 025 Active Xeljanz XR 11 mg 04/19/19 25 Active semaglutide (OZEMPIC) 2 mg/dose (8 mg/3 mL) pen injector injectionIndicatio ns:type 2 diabetes mellitus Inject 2 mg under the skin once a week 9 mL 3 08/05/19 25 026 Active insulin glargine 100 unit/mL (3 mL) pen for injection INJECT 16 UNITS UNDER THE SKIN TWICE DAILY 11/20/19 25 Active blood-glucose sensor (FreeStyle Suzette 3 Plus Sensor) deviceIndications: Type 2 diabetes mellitus with hyperglycemia, with long-term current use of insulin ([facility]) Change sensor every 15 days. 6 each 12/10/19 25 Active pen needle, diabetic (Pen Needle) 31 gauge x 5/16 needleIndications: Type 2 diabetes mellitus with hyperglycemia, with long-term current use of insulin ([facility]) Use to inject insulin 4 times daily 400 each 3 12/10/19 25 Active insulin glargine (LANTUS) 100 unit/mL (3 mL) pen for injection Inject 16 Units under the skin 2 (two) times a day 30 mL 3 04/26/19 25 025 Discontin ued(Alter shruthi therapy) Active Problems Problem Noted Date Diagnosed [...] medications. Assessment & Plan (04/21/2024 1:10 PM DIAMOND POWDER MIXER): Chronic problem, currently taking Levothyroxine 100 mcg [...] medications. Assessment & Plan (05/07/2023 3:57 PM DIAMOND POWDER MIXER): Chronic problem, currently taking Levothyroxine 100mcg Friday [...] TG=97. Assessment & Plan (04/21/2024 1:10 PM DIAMOND POWDER MIXER): Chronic problem, controlled on current Atorvastatin 40mg. Last lipid panel: 11/12/23 LDL=72, TG=97. Assessment & Plan (12/25/2023 1:32 PM CDT): Chronic problem, controlled on current Atorvastatin 40mg. Last lipid panel: 08/14/23 LDL=60, AM=380. Assessment & Plan (08/14/2023 2:00 PM CDT): Chronic problem, controlled on current Atorvastatin 40mg. Last lipid panel: 06/20/22 LDL=67, TG=95. Will update labs today. Does not mychart. Verified phone #/address to contact re: results. Assessment & Plan (05/07/2023 4:00 PM DIAMOND POWDER MIXER): Chronic problem, controlled on current Atorvastatin 40mg. [...] atorvastatin Assessment & Plan (03/28/2020 3:04 PM DIAMOND POWDER MIXER): Goal of treatment , LDL cholesterol less [...] therapy. Assessment & Plan (05/21/2019 10:07 AM DIAMOND POWDER MIXER): At goal on current medications. Continue statin [...] profile Assessment & Plan (05/14/2018 2:01 PM DIAMOND POWDER MIXER): Goal of treatment , LDL cholesterol less [...] on soda intake. [employer] protein drinks at [facility] at [facility]. -will increase ozempic from 1mg to 2mg [...] infection. Assessment & Plan (04/21/2024 1:40 PM DIAMOND POWDER MIXER): Chronic problem. A1c not at goal but [...] infection. Assessment & Plan (05/06/2023 2:48 PM DIAMOND POWDER MIXER): Chronic problem. Stable but uncontrolled. A1c was [...] Suzette Assessment & Plan (03/28/2020 3:03 PM DIAMOND POWDER MIXER): Hba1c was Lab Results Component Value Date [...] encouraged. Assessment & Plan (05/21/2019 10:04 AM DIAMOND POWDER MIXER): A1c 7.3. Improved however despite A1c, BGlog [...] discussed. Assessment & Plan (05/14/2018 1:59 PM DIAMOND POWDER MIXER): Hba1c was Lab Results Component Value Date [...] goal hba1c is under 7.0 to prevent mcfp diabetes complications ( eye , kidney and [...] discussed. Assessment & Plan (03/25/2017 2:52 PM DIAMOND POWDER MIXER): Hba1c was 7.2 today, indicating adequate DM [...] current carvedilol 6.25mg bid, lasix 20mg daily. Guitar Technician took her off losartan & amlodipine. Assessment & Plan (08/04/2024 1:20 PM CDT): Chronic problem; controlled on current carvedilol 6.25mg bid, lasix 20mg daily. Guitar Technician took her off losartan & amlodipine. Assessment & Plan (04/21/2024 1:11 PM DIAMOND POWDER MIXER): Chronic problem; controlled on current carvedilol 6.25mg bid. Guitar Technician took her off losartan & amlodipine. Assessment & Plan (12/25/2023 1:57 PM CDT): Chronic problem; BP controlled on current carvedilol 6.25mg bid. Guitar Technician took her off losartan & amlodipine. Assessment & Plan (08/14/2023 2:42 PM CDT): Chronic problem; BP controlled on current carvedilol 6.25mg bid, losartan 50mg daily, amlodipine 2.5mg daily. Will update labs today. Does not mychart. Verified phone #/address to contact re: results. Assessment & Plan (05/07/2023 4:00 PM DIAMOND POWDER MIXER): Chronic problem but very hypotensive today. Orthostatic [...] Losartan Assessment & Plan (03/28/2020 3:04 PM DIAMOND POWDER MIXER): Goal blood pressure is less than 140/85 [...] BP Assessment & Plan (05/21/2019 10:07 AM DIAMOND POWDER MIXER): Controlled on current medications. Continue plan. Assessment & Plan (02/04/2019 2:45 PM CDT): Controlled on current medications. Continue plan. Assessment & Plan (11/10/2018 1:57 PM CDT): Goal blood pressure is less than 140/85 Low salt diet recommended Daily aerobic exercise Continue current meds, including YONNY-I or ARB Check microalbumin Assessment & Plan (05/14/2018 1:59 PM DIAMOND POWDER MIXER): Goal blood pressure is less than 140/85 Low salt diet recommended Daily aerobic exercise Continue current meds, including YONNY-I or ARB Assessment & Plan (08/05/2017 3:22 PM CDT): Goal blood pressure is less than 140/85 Low salt diet recommended Daily aerobic exercise Continue current meds, including YONNY-I or ARB Assessment & Plan (03/25/2017 2:44 PM DIAMOND POWDER MIXER): Goal blood pressure is less than 140/85 Low salt diet recommended Daily aerobic exercise Continue current meds, including YONNY-I or ARB Assessment & Plan (12/10/2016 3:01 PM CDT): Goal blood pressure is less than 140/85 Low salt diet recommended Daily aerobic exercise Continue current meds, including YONNY-I or ARB Pain in shoulder 04/19/2016 Encounters Date Type Department Care Team Description 12/22/2024 Orders Only [facility] Medical [facility] Diabetes [facility] Endocrinology [address] [place] [id number] ProviderAlexia MD 12/09/2024 1:30 PM CDT Office Visit [facility] Diabetes and Endocrinology [address] [place] [phone] Desiree Hernández, COMMUNITY CENTER COORDINATOR Type 2 diabetes mellitus with hyperglycemia, with long-term current use of insulin (HCC) (Primary Dx); Hypertension associated with diabetes (HCC); Hyperlipidemia associated with type 2 diabetes mellitus (HCC); Acquired hypothyroidism from Last 3 Months Surgical History Surgery Date Site/Laterality Comments APPENDECTOMY Appendectomy TONSILLECTOMY Tonsillectomy KNEE ARTHROPLASTY Knee replacement CATARACT EXTRACTION 07/13/2021 - 08/11/2021 Left FLUORO GUIDED ASPIRATION OR INJECTION LARGE JOINT LEFT 12/31/2023 Left Medical History Medical History Date Comments Hypertension Hypertension Diabetes mellitus Diabetes melli tus; Comments: [facility] 06/13/2016 - Hx Other Medical hypothyroid; Co mments: [facility] 06/13/2016 - Hx Other Medical hyperlipidemia; Comments: [facility] 06/13/2016 - Hx Other Medical L shoulder repa lcement; Comments: [facility] 06/13/2016 - History of partial knee [...] on file Legal Sex Female 3:35 AM DIAMOND POWDER MIXER Gender Identity Not on file Sexual Orientation [...] Risk Assessment 12/30/2024 12/31/2023 eGFR 04/21/2025 04/21/2024, 0704/2023, 08/14/2023, Additional history exists Hemoglobin A1C 06/11/2025 12/09/2024, 04/06/2024, 04/21/2024, Additional history exists Albumin Creatinine Ratio, Urine 08/04/2025 08/04/2024, 08/14/2023, 10/10/2022, Additional history exists Foot Exam 08/04/2025 08/04/2024, 09/1 05/2023, 10/10/2022, Additional history exists Lipid Panel 08/04/2025 08/04/2024, 07/3 04/2023, 08/14/2023, Additional history exists Dilated Eye Exam [...] insulin (HCC) EGFR Routine 04/21/2024 1:53 PM DIAMOND POWDER MIXER Hypokalemia from Last 3 Months or Most Recently Relevant to Health Maintenance Results * (ABNORMAL) POCT hemoglobin A1c (12/09/2024 1:43 PM CDT) Hemoglobin A1C, POC 6.7(A) 4.0 - 5.6 % Capillary blood 12/09/2024 1 :43 PM CDT Desiree Hernández NP POINT OF CARE TEST ORDERA BLES Final Result * (ABNORMAL) POCT glucose (12/09/2024 1:43 PM CDT) Glucose Blood, POC 130 Normal Fasting 70 - 100, Random <200 mg/dL Comment:PPG 4 Hrs Blood 12/09/2024 1:43 PM CDT Desiree Hernández NP POINT OF CARE TEST ORDERA BLES Final Result * DIABETES EYE EXAM (09/09/2024 8:09 AM CDT) Historical Provider MD HEALTH MAINTENANCE Final Result * Albumin Creatinine [...] 0 PM CDT 08/04/2024 8:27 PM CDT Desiree Hernández NP LAB URINE ORDERABLES Meryl l Result [facility] [id number] [place] [address] * Lipid panel (08/04/2024 12:00 PM CDT) [...] on 2017. Triglycerides 78 <=149 mg/dL [facility] Comment: Interpretive Data Ages < or = [...] on 2017. HDL 59 >=40 mg/dL [facility] Comment: Interpretive Data Ages < or = [...] 2017. LDL, calculated 68 <=129 mg/dL [facility] Comment: Interpretive Data Ages < or = 19 years Acceptable: <110 mg/dL Borderline high: 110-129 mg/dL High: >or= 130 mg/dL Ages > or = 20 years Optimal: <100 mg/dL Near optimal: 100-129 mg/dL Borderline high: 130-159 mg/dL High: >160 mg/dL Calculated using the Cody LDL-C estimating equation. This equation was implemented on 2023. Prior to this date LDL-C was estimated using the Friedewald equation. Literature References: 1. Expert Panel on Integrated Guidelines for Cardiovascular Health and Risk Reduction in Children and Adolescents. Pediatrics 2011;128:S213 2. NCEP Expert Panel. Circulation 2004;110:227 3. Escobar M et al. MANDI Cardiol. 2019August 12;5(5):540-548. doi: 10.1001/[email or web address].2020.0013 Current Interpretive Data was [...] 08/04/2024 8:27 PM CDT us Desiree Hernández NP LAB BLOOD ORDERABLES Meryl l Result [facility] [id number] [address] [place] [address] * eGFR (04/21/2024 1:53 PM DIAMOND POWDER MIXER) eGFR 71 >=60 mL/min/1. 73 m2 Comment: [...] last reviewed 2021. Blood 04/21/2024 1:53 PM DIAMOND POWDER MIXER 04/21/2024 9:33 PM DIAMOND POWDER MIXER us Desiree Hernández NP LAB BLOOD ORDERABLES Meryl martinez Result [facility] [id number] [place] [address] from Last 3 Months or Most Recently Relevant to Health Maintenance Insurance [facility] Member Subscriber Plan / Payer (Ef fective 2016-Present) Name:NANCY MAE Relation to Subscriber:Self Name:Nancy Mae Payer ID:[id number] (NAIC) Type:MEDICARE RISK OTHER Address: [address] EMPL[employer]ES [employer] [facility] CHOICE PPO [employer] [facility] ADV[employer]AGE CHOICE PPO Care Teams Animal Care Taker Relationship Specialty [place] [id number] [address] [facility] [address] [place] [address] PCP - General Family Practice 10/10/22 [place] [id number] [address] [facility] [address] [place] [address] Consulting Physician Endocrinology Diabetes & Metabolism 05/12/18 [place] [id number] [address] [facility] [address] [place] [address] Consulting Physician Cardiology 11/30/19
--- OUTSIDE RECORDS SUMMARY | 2025-02-04 13:49 | XMS_ITS | Data Portability ---
Author Organization [place] [facility], Main Office Address [address] [place] [address] Care Team Providers Care Network Project Manager Name Role Phone DENNY BALLESTEROS Primary Care Provider DENNY BALLESTEROS Referring Provider Assessment Encounter Date Assessment Date Assessment LastModified by Organization Details LastModified Time 09/03/2022 09/03/2022 Patient returns hip pain bilaterally. She has had a couple of injections and anti-inflammator y medication. Unfortunately she remains symptomatic. She is tender mostly laterally over the trochanters less over the sacroiliac bursa to having had 2 injections last 2 times I think we need to change treatments. For prescription drug management will try prednisone taper for pain and inflammation. We will also begin therapy even though she does not want to. If this does not work the next step is an MRI scan. [email or web address] Not available 09/03/2022 14:25:13 11/21/2022 11/21/2022 Patient returns sacroiliac pain bilaterally. She also has symptoms of stenosis. I told the last time we talked that if she does not get better she probably needs an MRI of her lumbar spine. The shots help a little bit but not greatly so she continues to have pain and is radiating down her legs. We will get an MRI of the lumbar spine and see how much stenosis and impingement she has. Clearly she has some stenosis as well. Her shoulder she has of her reverse shoulder and overall alignment is okay I do not see any obvious fractures I think she mainly strained it. [email or web address] Not available 11/21/2022 14:25:38 12/10/2022 12/10/2022 Patient returns back and hip pain. She has arthritis in her back and fairly significant stenosis from L3 to the sacrum. She has failed conservative treatment to date and continues to be fairly symptomatic she has got pain radiates to her buttocks really not much below the knee though it is worse with activity somewhat relieved by rest. She has had a couple of injections physical therapy anti-inflammator y medication etc.. At this point I think it is time for an epidural injection and see if this helps we will send her to pain management for that if this does not do the job may have to consider referral to a spine surgeon as the next step reviewed the pictures and the report of the MRI with the patient in detail. She has continued to work on her weight which is certainly an issue with back pain she also has diabetes which makes treatment somewhat more difficult. [email or web address] Not available 12/10/2022 15:18:44 01/07/2023 01/07/2023 Patient returns low back and sacroiliac pain. She has had a nice response to conservative treatment is doing quite a bit better at this point. I think she can be released to normal activity if she has any changes or problems she is instructed call. I will see her back on an as-needed basis for follow-up discussed. [email or web address] Not available 01/07/2023 15:46:52 03/04/2023 03/04/2023 Patient has a painful left shoulder after a sudden popping sensation 2 and half months ago. Shoulder pain continues to be significant she has failed conservative measures. I think she needs to be referred back over to the surgeon who did her surgery in 2016 at [facility] in the meantime we will get a CT scan with sed rate C-reactive protein to rule out occult infection I think this may be more of a mechanical issue however. There could be some occult loosening of the humeral implant. We will get the testing done sin this with her so she can go back to [facility] to see that surgeon. She voiced understanding agrees above plan she will call for any further problems difficulties or questions. [email or web address] Not available 03/04/2023 12:10:52 Plan of Treatment Reminders Order Date Submit Date Provider Last Modified By Organization Details Last Modified Time Details Appointments None recorded. Lab CBC w/ auto diff [email or web address] [facility] (Lab), [address] [place], [address], 3 12:29:13 C-reactive protein, quantitati ve, serum or plasma 2022 023 [facility] (Lab), [address] [place], [address], 3 15:55:25 ESR (erythrocy te sedimentat ion rate), blood 2022 023 [facility] (Lab), [address] [place], [address], 3 14:34:21 Referral pain management referral - Please contact patient to schedule 2022 023 ALIDA Wood MD, [address], [place], [address], 3 21:48:57 physical therapist referral - please contact patient to schedule 2022 023 [facility] [place], [address] [place], [address], 14:50:30 Procedures None recorded. Surgeries None recorded. Imaging CT, shoulder, w/o contrast - Please give patient disc 2022 023 [facility] ([facility]), [address] [place], [address], 3 01:15:34 XR, shoulder 2022 023 [email or web address], [address], [place], [address], 3 15:05:53 MRI, lumbar spine, w/o contrast 2022 023 [email or web address] [facility], [address], [place], [address], 3 15:01:01 Medication Orders tramadol 50 mg tablet 2022 023 ALIDA [facility] #[id number], [address], [place], [address], 3 12:12:37 prednisone 10 mg tablets in a dose pack 2022 023 [email or web address] 58 [facility] #[id number], [address], [place], [address], 3 14:21:19 Patient TargetsNo targets recorded. Patient InstructionsNo instructions recorded. Reason for Referral Physical Therapist Referral for Pain of bilateral hip joints please contact patient to schedule Referring Physician: Tonny Rosen, Orthopedic Surgery, Encounter Date: 09/03/2022 Pain Management Referral for Spinal stenosis of lumbar region Please contact patient to schedule Referring Physician: Tonny Rosen Orthopedic Surgery, Encounter Date: 12/10/2022 Results Created Date Observation Date Name Description Value Unit Range Abnormal Flag Note LastModifiedBy Organization Detail LastModifiedTime 03/04/2003/04/2023 SEDIM ENTAT ION RATE erythrocyte sedimentatio n rate 22 mm/HR 0-20 high Not Available [facility] (Lab) [address] [place], [address], 03/04/2023 14:34:21 03/04/2003/04/2023 C REACT JA PROTE IN,UL TRA SENS C-reactive protein 0.09 mg/dL 0.0-0. [address] [facility] (Lab) [address] [place], [address], 03/04/2023 14:46:06 11/22/19 XR, shoul mirta No observ ation record ed. [email or web address] [facility] [address], [place], [address], 11/21/2022 14:31:42 12/05/19 MRI L spine wo [facility] [address] [facility] [place] [address] Patien t Name: NANCY GONZALEZ ion #: [id number] Sex: F : 1950 Dictat ed By: Jr farrar Attend ing Physic deepa: , Orderi ng Physic deepa: JORDON TONNY GALVIN Exam Date: 2022 09:21 AM Exam Name: MRI L SPINE WO Admitt ing Diagno sis(es ): CLINIC AL INFORM ATION: Low back pain radiat ing down the right leg. TECHNI MICHAEL INFORM ATION: Multis equenc e multip lanar MRI images of the lumbar spine were obtain ed withou t contra st. Examin ation was perfor med in an open MRI scanne r with 0.3 Abril magnet , which limits evalua tion compar ed to higher field streng scanne rs. No STIR images were obtain ed, limiti ng evalua tion for subtle marrow signal change s. COMPAR FRANCISCO: None. INTERP RETATI ON: The last interv ertebr al disc space is design ated L5-S1 for the purpos es of number ing on this exam. Verteb ral body alignm ent is within normal limits . Verteb ral body height s are mainta ined. Newsagent ior elemen ts are intact . No focal suspic ious marrow signal abnorm ality. Visual ized spinal cord and cauda equina are within normal limits . The conus medull goyo is approp riate in signal at the T12-L1 level. Parasp inal soft tissue s are unrema rkable . L1-L2: Disc desicc ation. No signif icant spinal canal or neural forami nal stenos is. L2-L3: Disc desicc ation. No signif icant spinal canal stenos is. Small left forami nal disc protru purnima and facet hypert rophy contri bute to mild to modera te left neural forami nal stenos is. L3-L4: Disc desicc ation with diffus e disc bulge and left forami nal disc protru purnima. No signif icant spinal canal stenos is. Modera te to severe left neural forami nal stenos is and efface ment of the left latera l recess . L4-L5: Disc desicc ation. Diffus e disc bulge mildly indent ing the ventra l aspect of the thecal sac and partia lly effaci ng the latera l recess es. No signif icant spinal canal stenos is. Facet hypert rophy and encroa chment of the Page 1 [facility] [address] [place] [address] Patien t Name: NANCY GONZALEZ Access ion #: [id number] Sex: F : 1950 Dictat ed By: Jr farrar Attend ing Physic deepa: , Josh clemons Physic deepa: TONNY TORRES Exam Date: 2022 09:21 AM Exam Name: MRI L SPINE WO Admitt ing Diagno sis(es ): neural forami na by the disc bulge contri bute to modera te bilate ral neural forami nal stenos es. Small bilate ral facet joint effusi ons. L5-S1: Severe disc space narrow ing. No signif icant spinal canal or neural forami nal stenos is. IMPRES PURNIMA: Degene rative disc diseas e and facet diseas e in the lumbar spine with associ ated neural forami nal stenos es as detail ed above. Findin gs are greate st at the L3-L4 level, where there is modera te to severe left neural forami nal stenos is second yaya to left forami nal disc protru purnima and concom itant facet hypert rophy. Electr onical ly Signed by: Jr farrar at 2022 17:28: 52 PM Page [address] (Imaging) [address] [place], [address], 12/05/2022 07:38:20 03/05/20 23 03/04/2023 CT, shoul mirta, w/o contr ast [facility] [address] [place] [address] [phone] Patien t Name: NANCY GONZALEZ Access ion #: [id number] Sex: F : 1950 4 Dictat ed By: Regla Espinosa Attend ing Physic deepa: JEANCARLOS DEVI Orderi Physic deepa: JEANCARLOS DEVI Exam Date: 2022 12:38 PM Exam Name: CT SHOULD ER LT WO Admitt ing Diagno sis(es ): CT SHOULD ER LT WO Histor y: Pain Compar francisco: none CTDIvo l 46 mGy, DLP 1514 mGy*cm . Techni que: Multip le axial CT images of the left upper extrem ity were obtain ed using bone algori thm. Axial and sandoval l reform atting was done. Bone and soft tissue window s were review ed. Findin gs/ impres purnima: Status post total left should er arthro plasty with intact orthop edic hardwa re. There is no fractu re or disloc ation. The adjace nt soft tissue struct ures are within normal limits . No signif icant inflam matory change s. No focal fluid collec tions. Partia lly visual ized left lung is clear. Electr onical ly Signed by: Regla Espinosa at 2022 00:14: 19 AM Page [email or web address] [facility] (Imaging) [address] [place], [address], 03/05/2023 08:34:56 Result Notes Documentation Provider Name and Address Organization Details Recorded Time Ct, Shoulder, W/o Contrast : [facility] [address] [place] [address] Patient Name: NANCY MAE Sex: F : 1950 Dictated By: Regla Espinosa Attending Physician: JEANCARLOS DEVI Ordering Physician: JEANCARLOS DEVI Exam Date: 03/04/2023 12:38 PM Exam Name: CT SHOULDER LT WO Admitting Diagnosis(es): CT SHOULDER LT WO History: Pain Comparison: none CTDIvol 46 mGy, DLP 1514 mGy*cm. Technique: Multiple axial CT images of the left upper extremity were obtained using bone algorithm. Axial and coronal reformatting was done. Bone and soft tissue windows were reviewed. Findings/ impression: Status post total left shoulder arthroplasty with intact orthopedic hardware. There is no fracture or dislocation. The adjacent soft tissue structures are within normal limits. No significant inflammatory changes. No focal fluid collections. Partially visualized left lung is clear. Page 1 JAMESON Costello, ANGELIQUE VASQUEZ [place] [employer] [facility] 03/05/2023 08:34:56 Problems Name Problem SNOMED Code Status Onset Date Resolution Date Notes Provider Name and Address Organization Details Recorded Time Disorder of shoulder 100578030 Active Not Available [facility] 3 05:58:44 Urinary incontinen ce 954718395 Active Not Available [facility] 3 05:58:44 Radiothera py follow-up 233001158 Active Not Available [facility] 3 05:58:44 Abdominal pain 96828748 Active Not Available [facility] 3 05:58:45 Osteoarthr itis of knee 980657593 Active Not Available [facility] 3 05:58:45 Edema 529757339 Active Not Available [facility] 3 05:58:45 Lesion of vulva 835408593 Active Not Available [facility] 3 05:58:45 Depressive disorder 78134326 Active Not Available [facility] 3 05:58:45 Inflammato ry disorder of extremity 693506114 Active Not Available [facility] 3 05:58:45 Osteoarthr itis 650741545 Active Not Available [facility] 3 05:58:46 Hypothyroi dism 88571880 Active Not Available [facility] 3 05:58:46 Glycosuria 25143764 Active Not Available [facility] 3 05:58:46 Laryngitis 04964930 Active Not Available [facility] 3 05:58:46 Hyperlipid emia 96951595 Active Not Available [facility] 3 05:58:46 Essential hypertensi on 16279212 Active Not Available [facility] 3 05:58:46 Influenza 0260633 Active Not Available [facility] 3 05:58:46 Thrombophl ebitis 70731132 Active Not Available [facility] 3 05:58:46 Colitis 36560448 Active Not Available [facility] 3 05:58:47 Urinary tract infectious disease 83481444 Active Not Available [facility] 3 05:58:47 Diabetes mellitus 69237534 Active Not Available [facility] 3 05:58:47 Pain in limb 16055977 Active Not Available [facility] 3 05:58:47 Asthma 783992458 Active 2018 Not Available [facility] 3 05:58:44 Fibromyalg ia 476988845 Active 2018 Not Available [facility] 3 05:58:45 Pneumonia 037869771 Active 2018 Not Available [facility] 3 05:58:45 Bronchitis 84635457 Active 2018 Not Available [facility] 3 05:58:45 Arthritis 0540287 Active 2018 Not Available [facility] 3 05:58:45 Hypertensi ve disorder 88256305 Active 2018 Not Available [facility] 3 05:58:45 Seasonal allergy 189207468 Active 2018 Not Available [facility] 3 05:58:46 Plantar fasciitis of right foot 9289782587337 9101 Active 2018 Not Available [facility] 3 05:58:44 Right Achilles tendinitis 3147079143478 02 Active 2018 Not Available [facility] 3 05:58:45 Low back pain 501771809 Active 2022 HILARIA Taylor, [place] [facility] 3 14:13:47 Pain of bilateral hip joints 3781662428321 9100 Active 2022 JAMESON Costello, [facility] 3 14:22:32 Trochanter ic bursitis of right hip 0086229315073 00 Active 2022 Tonny Rosen MD [address], [place], [address] , [facility] 3 16:27:42 Trochanter ic bursitis of left hip 7598555103209 03 Active 2022 Tonny Rosen MD [address], [address], [place], [address] , [facility] 3 16:27:48 Pain of left shoulder joint 2738165447246 9109 Active 2022 JAMESON Costello, [place] [facility] 3 14:23:45 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 5874025894119 9102 Active 2022 Tonny Rosen MD [address], [place], [address] , [facility] 3 14:32:38 Spinal stenosis of lumbar region 49886941 Active 2022 Leanne Harvey tawny, [facility] 3 15:14:43 Notes:back/neck problems, aranza wel problems, female problems/infections, thyroid disease, urinary/bladder/kidney problems, muscle pain, swollen or painful joints, unexplained weight gain, excessive thirst, wears glasses, recent bladder infection Problem Notes None recorded. Procedures Surgical History Date Name Laterality Status Provider Name and Address Organization Details Recorded Time 08/07/19 23 Ortho - Cortisone Injection completed MD Mateusz [address], [place], [address], [facility] 08/06/2022 14:44:41 07/10/19 23 Ortho - Cortisone Injection completed Tonny Rosen MD [address], [place], [address], [facility] 07/09/2022 16:27:04 procedure on tonsils completed HILARIA Taylor [facility] 07/09/2022 14:11:53 Hysterectomy completed HILARIA Taylor [facility] 07/09/2022 14:12:01 Knee Replacement completed Cleoparta mcnally Radha [facility] 07/09/2022 14:12:33 Imaging Results None recorded. Procedure Notes None recorded. Medical Equipment None Reported. Allergies Allergen ID Allergen Name Allergen Category Reaction Reaction Severity Criticality Documentation Date Start Date Code Code System Note Provider Name and Address Organization Details Recorded Time Biaxin medicatio n Not available Not available Not available 06/12/202272441 9 RxNorm Not Available [facility] 3 06:05:01 adhesive environme nt,medica tion Not available Not available Not available 06/12/2022 Not Available [facility] 3 06:05:01 Medications Name Sig Start Date Stop Date Status Note LastModified by Organization Details LastModified Time losartan 50 mg tablet TAKE 1 TABLET BY MOUTH DAILY 03/23 completed Not Available Not Available Not Available celecoxib 200 mg capsule TAKE 1 CAPSULE BY MOUTH EVERY DAY active Not Available Not Available No t Available cyclobenza yaw 10 mg tablet TAKE 0.5-1 ORAL TABLET 2 TIMES A DAY active Not Available Not Available No t Available furosemide 40 mg tablet Take 1 tablet every day by oral route for 30 days. active Not Available Not Available No t Available atorvastat in 40 mg tablet TAKE 1 TABLET BY MOUTH EVERYDAY AT BEDTIME active Not Available Not Available No t Available nystatin 100,000 unit/mL oral suspension 03/23 completed Not Available Not Available Not Available carvedilol 6.25 mg tablet TAKE 1 TABLET BY MOUTH TWICE A DAY active Not Available Not Available No t Available prednisone 10 mg tablet TAKE 1 TABLET BY MOUTH 3 TIMES DAILY X3 DAYS, 1 TAB TWICE DAILY X2 DAYS THEN 1 TAB DAILY X1 DAY active Not Available Not Available No t Available trazodone 50 mg tablet TAKE 1 TABLET BY MOUTH EVERY DAY AT BEDTIME NEEDED FOR SLEEP active Not Available Not Available No t Available polyethyle ne glycol 3350 17 gram oral powder packet MIX 17 GRAMS DIRECTED AND TAKE BY MOUTH EVERY MORNING 03/23 completed Not Available Not Available Not Available cetirizine 10 mg tablet TAKE 1 TABLET BY MOUTH EVERY DAY 07/04 completed Not Available Not Available Not Available atorvastat in 10 mg tablet active Not Available Not Available Not Available oxybutynin chloride ER 10 mg tablet,ext ended release 24 hr TAKE 1 TABLET BY MOUTH EVERY DAY active Not Available Not Available No t Available azithromyc in 250 mg tablet 03/23 completed Not Available Not Available Not Available ibuprofen 800 mg tablet TAKE 1 TABLET BY MOUTH EVERY 6 TO 8 HOURS NEEDED active Not Available Not Available No t Available fluconazol e 150 mg tablet TAKE 1 TABLET BY MOUTH ONE TIME active Not Available Not Available No t Available tolterodin e ER 4 mg capsule,ex tended release 24 hr TAKE 1 CAPSULE BY ORAL ROUTE EVERY DAY 03/23 completed Not Available Not Available Not Available prochlorpe razine maleate 5 mg tablet active Not Available Not Available No t Available lisinopril 20 mg tablet TAKE ONE TABLET DAILY active Not Available Not Available No t Available glipizide 10 mg tablet TAKE 1 TABLET DAILY 03/23 completed Not Available Not Available Not Available hydroxyzin e pamoate 50 mg capsule 03/23 completed Not Available Not Available Not Available amlodipine 2.5 mg tablet TAKE 1 TABLET (2.5 MG) BY MOUTH DAILY active Not Available Not Available No t Available metronidaz ole 500 mg tablet Take 1 tablet every 8 hours by oral route for 7 days. active Not Available Not Available No t Available ciprofloxa sophia 250 mg tablet Take 1 tablet every 12 hours by oral route for 5 days. 03/23 completed Not Available Not Available Not Available ciprofloxa sophia 500 mg tablet Take 1 tablet every 12 hours by oral route for 7 days. 03/23 completed Not Available Not Available Not Available sulfametho xazole 800 mg-trimeth oprim 160 mg tablet active Not Available Not Available No t Available aspirin 81 mg tablet,del ayed release Take 2 tablets every day by oral route. 07/04 completed Not Available Not Available Not Available tramadol 50 mg tablet TAKE 1 TABLET BY MOUTH EVERY 6 TO 8 HOURS NEEDED active Not Available Not Available No t Available prednisone 10 mg tablets in a dose pack Take 1 tab by mouth, 3 times a day for 3 daysTake 1 tab by mouth 2 times a day for 2 daysTake 1 tab by mouth once a day for 1 day 2022 active Not Available Not Available Not Avai lable meloxicam 7.5 mg tablet active Not Available Not Available Not Available levothyrox ine 100 mcg tablet TAKE 1 TABLET BY MOUTH EVERY DAY active Not Available Not Available No t Available oxycodone- acetaminop hen 5 mg-325 mg tablet 03/23 completed Not Available Not Available Not Available levothyrox ine 88 mcg tablet TAKE 1 TABLET BY ORAL ROUTE EVERY DAY 07/04 completed Not Available Not Available Not Available prednisolo ne acetate 1 % eye drops,susp ension INSTILL 1 DROP INTO THE RIGHT EYE 3 TIMES DAILY, TAPER DIRECTED active Not Available Not Available No t Available aspirin 325 mg tablet,del ayed release TAKE 1 TABLET BY MOUTH TWICE A DAY FOR 6 WEEKS 03/23 completed Not Available Not Available Not Available Humalog U-100 Insulin 100 unit/mL subcutaneo us solution Sliding Scale (moderat e) Max dose 36 units per day active Not Available Not Available No t Available Kenalog 10 mg/mL suspension for injection Take 40 mg by injectio n route. 2022 active [facility]: [phone] Not Available Not Available Not Available meclizine 25 mg tablet active Not Available Not Available Not Available benzonatat e 100 mg capsule TAKE 1 CAPSULE BY MOUTH THREE TIMES A DAY NEEDED FOR COUGH 03/23 completed Not Available Not Available Not Available metformin 1,000 mg tablet active Not Available Not Available Not Available ibuprofen 400 mg tablet active Not Available Not Available Not Available nystatin-t riamcinolo ne 100,000 unit/g-0.1 % topical cream APPLY TOPICALL Y TWICE A DAY active Not Available Not Available No t Available oxybutynin chloride ER 5 mg tablet,ext ended release 24 hr TAKE 1 TABLET BY MOUTH EVERY DAY active Not Available Not Available No t Available Senna Laxative 8.6 mg tablet TAKE 1 TABLET BY MOUTH TWICE A DAY NEEDED FOR CONSTIPA TION active Not Available Not Available No t Available mupirocin 2 % topical ointment active Not Available Not Available Not Available zolpidem 5 mg tablet Take 1 tablet every day by oral route as needed. 2014 active Not Available Not Available Not Avai lable furosemide 20 mg tablet TAKE 1 TABLET BY MOUTH EVERY DAY FOR EDEMA active Not Available Not Available No t Available ergocalcif saumya (vitamin D2) 1,250 mcg (50,000 unit) capsule TAKE 1 CAPSULE BY MOUTH EVERY WEEK 07/04 completed Not Available Not Available Not Available Novolog U-100 Insulin aspart 100 unit/mL subcutaneo us solution Inject by subcutan eous route per sliding scale Max dose 36 units daily 07/04 completed Not Available Not Available Not Available Cheratussi n AC 10 mg-100 mg/5 mL oral liquid active Not Available Not Available Not Available cefuroxime axetil 500 mg tablet TAKE 1 TABLET BY MOUTH EVERY 12 HOURS 03/23 completed Not Available Not Available Not Available levofloxac in 500 mg tablet 03/23 completed Not Available Not Available Not Available lovastatin 20 mg tablet active Not Available Not Available Not Available methylpred nisolone 4 mg tablets in a dose pack 03/23 completed Not Available Not Available Not Available lisinopril 40 mg tablet active Not Available Not Available Not Available ondansetro n 4 mg disintegra ting tablet active Not Available Not Available Not Available losartan 100 mg tablet TAKE 1 TABLET BY MOUTH EVERY DAY active Not Available Not Available No t Available naproxen 500 mg tablet active Not Available Not Available Not Available amoxicilli n 875 mg-potassi um clavulanat e 125 mg tablet TAKE 1 TABLET BY MOUTH TWICE A DAY active Not Available Not Available No t Available oxycodone 5 mg tablet 03/23 completed Not Available Not Available Not Available Novolog Mix 70-30 FlexPen U-100 Insulin 100 unit/mL subcutaneo us pen INJECT 36 UNITS IN THE MORNING AND 24 UNITS IN THE EVENING . DR PHILLIP NEED OFFICE VISIT FOR FURTHER REFILLS 03/23 completed Not Available Not Available Not Available Novolog FlexPen U-100 Insulin aspart 100 unit/mL (3 mL) subcutaneo us INJECT 6-16 UNITS SUBCUTAN EOUSLY BEFORE BREAKFAS T AND DINNER ON A SLIDING SCALE TDD 32UNITS 07/04 completed Not Available Not Available Not Available cyclobenza yaw 5 mg tablet Take 1 tablet twice a day by oral route for 30 days. active as needed Not Available Not Available Not Available Zovirax 5 % topical cream active Not Available Not Available Not Available Senna Plus 8.6 mg-50 mg tablet TAKE 1 TABLET TWICE A DAY NEEDED FOR CONSTIPA TION 07/04 completed Not Available Not Available Not Available nitrofuran toin monohydrat e/macrocry stals 100 mg capsule 03/23 completed Not Available Not Available Not Available duloxetine 30 mg capsule,de layed release TAKE 1 CAPSULE BY MOUTH EVERY DAY active Not Available Not Available No t Available duloxetine 60 mg capsule,de layed release TAKE ONE CAPSULE BY MOUTH EVERY DAY 07/04 completed Not Available Not Available Not Available aspirin 2015 active 81 mg bid Not Available Not Available Not Available tramadol 2015 active Not Available Not Available Not Avai lable Ambien 2015 active Not Available Not Available Not Avai lable ProAir HFA 90 mcg/actuat ion aerosol inhaler active Not Available Not Available Not Available Lantus Solostar U-100 Insulin 100 unit/mL (3 mL) subcutaneo us pen 07/04 completed Not Available Not Available Not Available Humalog KwikPen (U-100) Insulin 100 unit/mL subcutaneo us INJECT 8-16 UNITS UNDER THE SKIN 3 TIMES A DAY BEFORE MEALS active Not Available Not Available No t Available diclofenac 1 % topical gel APPLY 2 GRAMS TO THE AFFECTED AREA(S) 4 TIMES DAILY 03/23 completed Not Available Not Available Not Available Prevnar 13 (PF) 0.5 mL intramuscu lar syringe ADM 0.5ML IM UTD 07/04 completed Not Available Not Available Not Available ropivacain e (PF) 5 mg/mL (0.5 %) injection solution Take 40 mg by injectio n route. 2022 active Not Available Not Available Not Avai lable BD Insulin Syringe Ultra-Fine 1 mL 31 gauge x 08/27 completed Not Available Not Available Not Available Levemir FlexTouch U-100 Insulin 100 unit/mL (3 mL) subcutaneo us pen INJECT 35 UNITS SUBQ TWICE DAILY active Not Available Not Available No t Available Fluzone High-Dose 2019-20 (PF) 180 mcg/0.5 mL intramuscu lar syringe ADM 0.5ML IM UTD 07/04 completed Not Available Not Available Not Available FreeStyle Suzette 2 Sensor kit USE DIRECTED AND CHANGE ONCE EVERY 14 DAYS active Not Available Not Available No t Available Trulicity 3 mg/0.5 mL subcutaneo us pen injector INJECT THE CONTENTS OF 1 PEN UNDER THE SKIN ONCE WEEKLY active Not Available Not Available No t Available Ozempic 1 mg/dose (4 mg/3 mL) subcutaneo us pen injector INJECT 1 MG UNDER THE SKIN EVERY 7 DAYS active Not Available Not Available No t Available Semglee (insulin glargine-y fgn) Pen 100 unit/mL (3 mL) subcutaneo us INJECT 16 UNITS UNDER THE SKIN TWICE DAILY active Not Available Not Available No t Available Ozempic 0.25 mg or 0.5 mg (2 mg/3 mL) subcutaneo us pen injector INJECT 0.5 MG UNDER THE SKIN ONCE A WEEK active Not Available Not Available No t Available Vitals Date Recorded Body height Body mass index (BMI) Body weight Provider Name and Address Organization Details Last Updated DateTime 09/03/2022 162.56 cm 34.2 kg/m2 68735.88 g Cleopatra Munroe [email or web address] [facility] [employer] 09/03/2022 14:06:35 Date Recorded Body height Body mass index (BMI) Body weight Provider Name and Address Organization Details Last Updated DateTime 11/21/2022 163.83 cm 33.6 kg/m2 01653.88 g Sherry Michelle [employer] 11/21/2022 14:17:17 Date Recorded Body height Body mass index (BMI) Body weight Provider Name and Address Organization Details Last Updated DateTime 12/10/2022 163.83 cm 33.6 kg/m2 69182.88 g Sherry Miguel Angel, [email or web address] [facility] [employer] 12/10/2022 15:03:14 Date Recorded Body height Body mass index (BMI) Body weight Provider Name and Address Organization Details Last Updated DateTime 01/07/2023 162.56 cm 34.2 kg/m2 51683.88 g Cleopatra Munroe [employer] 01/07/2023 15:34:15 Date Recorded Body height Body mass index (BMI) Body weight Provider Name and Address Organization Details Last Updated DateTime 03/04/2023 162.56 cm 33.8 kg/m2 28481.7 g Ina Damon [employer] 03/04/2023 11:28:52 Social History None recorded. Functional Status Question Answer Note LastModified by Organizat ion Details LastModified Time What is your level of alcohol consumption? 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 Family History Relationship Description Onset Age of this Age Resolved Age Notes LastModified by Organization Details LastModified Time Mother Heart disease Not available 2022 14:10:45 Mother Diabetes mellitus [email or web address] Not available 2022 14:11:14 Mother Kidney disease [email or web address] Not available 2022 14:11:25 Sister Heart disease [email or web address] Not available 2022 14:10:49 Sister Diabetes mellitus Not available 2022 14:11:14 Father Family history of malignant neoplasm [email or web address] Not available 2022 14:11:01 Notes:stroke - sister, cance r - father, paternal and maternal aunts Medical History Condition Response ARTHRITIS Y DIABETES, TYPE Y Gynecological HistoryNo gynecological history recorded. Obstetrics History GPAL:G 0 P 0 0 0 0 Past Encounters Encounter ID Performer Location Encounter Start Date Encounter Closed Date Diagnosis/Indication Diagnosis SNOMED-CT Code Diagnosis ICD10 Code Diagnosis IMO Codes Diagnosis Note [id number] Tonny Rosen MD [facility] [place] [address] [place] [address] 07/09/2022 13:47:42 07/09/2022 16:16:24 Low back pain 657910467 M54.50 Pain of bi lateral hip joints 1017690532 5701763 M25.551 M25.552 Trochanter ic bursitis of right hip 5352867138 62474 M70.61 Trochanter ic bursitis of left hip 2709557679 22366 M70.62 [id number] Tonny Rosen MD [facility] [place] [address] [place] [address] 08/06/2022 14:01:24 08/06/2022 14:53:00 Low back pain 064363960 M54.50 Pain of bi lateral hip joints 1452527446 2663469 M25.551 M25.552 Trochanter ic bursitis of left hip 5564018443 81276 M70.62 Trochanter ic bursitis of right hip 8680531966 57383 M70.61 [id number] Tonny Rosen MD [facility] [place] [address] [place] [address] 09/03/2022 13:59:33 09/03/2022 14:47:16 Low back pain 558735036 M54.50 Pain of bi lateral hip joints 1025713139 7353968 M25.551 M25.552 Trochanter ic bursitis of left hip 9729295119 65886 M70.62 Trochanter ic bursitis of right hip 0646400953 27895 M70.61 [id number] Tonny Rosen MD [facility] [place] [address] [place] [address] 11/21/2022 14:13:02 11/21/2022 15:03:37 Pain of bilateral hip joints 1877855736 1459229 M25.551 M25.552 Low back pain 907003962 M54.50 Trochanter ic bursitis of left hip 9870310233 32136 M70.62 Trochanter ic bursitis of right hip 0903299154 27202 M70.61 Pain of le ft shoulder joint 1685516838 2288142 M25.512 History of reverse prosthetic total arthroplasty of left shoulder 5527020151 2114859 Z96.223 [id number] Tonny Rosen MD [facility] [place] [address] [place] [address] 12/10/2022 14:59:35 12/10/2022 15:40:05 Pain of bilateral hip joints 2770655298 5524193 M25.551 M25.552 Low back pain 748815416 M54.50 Spinal royal nosis of lumbar region 29141577 M48.138 [id number] Tonny Rosen MD [facility] [place] [address] [place] [address] 01/07/2023 15:28:13 01/07/2023 15:55:32 Low back pain 140115784 M54.50 [id number] Facundo Sorensen MD [facility] [place] [address] [facility], [address] [place] [address] 03/04/2023 11:25:26 03/04/2023 12:10:26 Disorder of shoulder 998317213 M25.819 Pain of le ft shoulder joint 1699725873 8516220 M25.512 History of reverse prosthetic total arthroplasty of left shoulder 1399840427 4509812 Z96.612 Health Concerns Section Related Observation LastModified by Organization Detai ls LastModified Time None Recorded Concern Status LastModified by Organization Details LastModified Time None Recorded Advance Directives Directive None Recorded Payers Insurance Date Sequence Insurance Name Policy Number Policy Candelaria Covered Member ID Candelaria Member ID Guarantor Name 06/03/2023 1 [facility] [id number] Anurag Moriah Familia [id number] Nancy Mae 08/07/2023 2 [facility] (MEDICARE REPLACEMENT HMO) [id number] Nancy Mae [id number] Nancy Mae Notes Date Note Type Note Provider Name and Address Organization Details Recorded Time 09/03/2022 text/html Patient returns hip and back pain. He has bilateral mostly on the trochanteric region of the sacroiliac nerves worse with activity somewhat relieved by rest and she got reasonable relief last injection however it is back. Tonny Rosen MD [address] [facility], [place], [address], [employer] 09/03/2022 14:25:34 11/21/2022 text/html Patient returns back and sacroiliac pain. She has had injections therapy exercise Medicine and time unfortunately she continues to be painful she does not think she has a whole lot better. She states it bothers her all the time. Secondary complaint is that of shoulder pain she had a shoulder replacement done felt that the pop over the weekend when she was trying to use it and wonders if she damaged it. Tonny Rosen MD [address] [facility], [place], [address], [employer] 11/21/2022 14:32:59 12/10/2022 text/html Patient returns back and sacroiliac pain. She has had injections therapy exercise Medicine and time unfortunately she continues to be painful she does not think she has a whole lot better. She states it bothers her all the time. Secondary complaint is that of shoulder pain she had a shoulder replacement done felt that the pop over the weekend when she was trying to use it and wonders if she damaged it. Tonny Rosen MD [address], [place], [address], [facility] 12/10/2022 15:26:18 01/07/2023 text/html Patient returns status post back pain. She has responded well to the injections sacroiliac region and the pain is tolerable at this point. She would like to leave it alone at this point continue with exercises. Tonny Rosen MD [address], [place], [address], [facility] 01/07/2023 15:47:07 03/04/2023 text/html Patient returns complaining of shoulder pain. This is her left shoulder. She has had a previous reverse shoulder arthroplasty after a significant crush type fracture of the humeral head and neck. This was done in [address] [facility]. Rosen saw the patient and did x-rays 2 months ago he reported that the x-rays showed good alignment. The pain actually started after a sudden popping sensation in the shoulder while getting dressed 2 months ago. She states the pain has been unrelenting since then. She has tried some muscle relaxers ibuprofen and activity modification she states she cannot tolerate any type of range of motion of her shoulder has to hold it against her body reports loss of motion and some weakness as well. I reviewed her x-rays again today alignment looks good and does looks like there may be some lucency around the proximal portion of the implant but no obvious failure of the implant. She denies any fevers chills night sweats no constitutional symptoms has had no recent infections denies any swelling effusion no erythema heat or other signs of infection in the shoulder itself. She has some pain at rest much more pain with any motion she reports that about a 10 on a scale 1-10. She comes in today to talk about further treatment options as she is not getting any relief over time. KHARI Beasley [address], [place], [address], [facility] 03/04/2023 12:12:57 OBGyn Episode No OBEpisode recorded.
[2025-02-04 14:45] LABS: Hematocrit 37.9 % (37.0-47.0); Hemoglobin 12.6 g/dL (12.0-15.0); Immature Granulocyte Percent A 0.5 % (0-0.5); Lymphocytes Absolute Auto 2.79 K/mm3 (0.9-3.2); Mean Corpuscular HGB Conc 33.2 g/dl (32-36); Mean Corpuscular Hemoglobin 28.6 pg (26-34); Mean Corpuscular Volume 85.9 fl (80-100); Nucleated Red Blood Cells Absolute Auto 0.000 K/mm3 (0.0-0.012); Nucleated Red Blood Cells Perc 0.0 % (0.0-0.2); Platelet Count Result 207 k/mm3 (150-375); Red Blood Count 4.41 M/mm3 (4.2-5.4); White Blood Count 8.3 K/mm3 (4.5-10.0)
[2025-02-04 14:56] LABS: INR 1.2; Prothrombin Time 15.2 Seconds (11.1-14.7)
[2025-02-04 14:57] LABS: Alanine Aminotransferase 17 U/L (6-35); Albumin Level 4.0 g/dL (3.5-5.1); Alkaline Phosphatase 92 U/L (38-126); Anion Gap 8 mmol/L (4-12); Aspartate Amino Transferase 29 U/L (14-36); Bilirubin,Total 1.1 mg/dL (0.2-1.3); Blood Urea Nitrogen 21 mg/dL (7-17); Calcium 9.4 mg/dL (8.4-10.2); Carbon Dioxide 28 mmol/L (22-30); Chloride 98 mmol/L (98-107); Estimated CRCL calculation 47 ml/min; Estimated Glomerular Filt Rate 59; Glucose 185 mg/dL (65-110); Potassium 3.3 mmol/L (3.4-5.0); Sodium 134 mmol/L (137-145); Total Protein 7.5 g/dL (6.3-8.2)
[2025-02-04 14:58] LABS: Partial Thromboplastin Time 28.7 Seconds (22.3-36.8)
[2025-02-04 16:07] LABS: Add Urine Microscopic? YES; Appearance Urine Clear (Clear); Glucose Urine UA Negative (Negative); Leukocyte Esterase Ur Trace LEU/UL (Negative); Need Manual Microscopic Reviewed; Nitrate Urine Negative (Negative); Non Pathogenic Casts 0-2; Specific Grav Ur 1.008 (1.001-1.035)
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
== END 2025-02-04 17:13 | disposition home or self-care (01) ==
PROVIDERS: Emergency Provider Emergency Medicine; PCP Nurse Practitioner Family
DX: N93.9 Abnormal uterine and vaginal bleeding, unspecified (principal); I10 Essential (primary) hypertension; I25.10 Atherosclerotic heart disease of native coronary artery without angina pectoris; E11.9 Type 2 diabetes mellitus without complications; E78.5 Hyperlipidemia, unspecified; E03.9 Hypothyroidism, unspecified; J45.909 Unspecified asthma, uncomplicated; M85.80 Other specified disorders of bone density and structure, unspecified site; M19.90 Unspecified osteoarthritis, unspecified site; M79.7 Fibromyalgia; N32.81 Overactive bladder; Z96.659 Presence of unspecified artificial knee joint; Z96.611 Presence of right artificial shoulder joint; Z86.16 Personal history of COVID-19; Z90.710 Acquired absence of both cervix and uterus; Z98.42 Cataract extraction status, left eye; Z98.41 Cataract extraction status, right eye; Z79.4 Long term (current) use of insulin; Z79.899 Other long term (current) drug therapy; Z79.82 Long term (current) use of aspirin
CPT/HCPCS: 36415; 74177; 80053; 81001; 85025; 85610; 85730; 99284; Q9967